=== PATIENT | female | born 1995 | race Caucasian/White ===

== ENCOUNTER 2024-05-01 14:36 | Emergency (ER) | payer MEDICAID, SELFPAY ==
[2024-05-01 14:43] VITALS: BP 124/86; PULSE 99; TEMP 36.8; O2SAT 99; BMI 29.5
--- NOTE | 2024-05-01 15:03 | XR_ITS ---
The [address] [address] Patient Name: LUIS MEADOWS MRN: [id number] date: 1995 Sex: F Assigned Patient Location: ER Current Patient Location: ER Accession/Order Number: [id number] Exam Date: 05/01/2024 15:30 Report Date: 05/01/2024 15:45 At the request of: ESTEFANY ESCOBEDO Procedure: XR tibia fibula RT 2V EXAM: XR tibia fibula RT 2V HISTORY: fall COMPARISON: Right femur x-ray 05/01/2024. TECHNIQUE: AP lateral right lower leg knee to ankle area. FINDINGS: Negative for fracture or bony abnormality. No foreign body. Visualized knee and ankle without abnormality although ankle visualization is limited. XR/XR tibia fibula RT 2V IMPRESSION: Negative for fracture. Electronically authenticated by: JOSE MADRID Date: 05/01/2024 15:45
--- NOTE | 2024-05-01 15:03 | XR_ITS ---
The [address] [address] Patient Name: LUIS MEADOWS MRN: [id number] date: 1995 Sex: F Assigned Patient Location: ER Current Patient Location: ER Accession/Order Number: [id number] Exam Date: 05/01/2024 15:30 Report Date: 05/01/2024 15:46 At the request of: ESTEFANY ESCOBEDO Procedure: XR femur RT 2V EXAM: XR femur RT 2V HISTORY: fall COMPARISON: Right lower leg 05/01/2024 TECHNIQUE: AP lateral right femur hip to knee. FINDINGS: Negative for fracture or focal bony abnormality. No soft tissue foreign body. Visualized hip and knee unremarkable. XR/XR femur RT 2V IMPRESSION: Negative for fracture or bony abnormality. Electronically authenticated by: JOSE MADRID Date: 05/01/2024 15:46
--- NOTE | 2024-05-01 15:04 | ED.LOWEXI1 ---
HPI HPI - Extremity Injury (Lower) General Chief Complaint: Extremity Injury, Lower Stated Complaint: LOWER RIGHT EXTREMITY PAIN, INJURY Time Seen by Provider: 05/01/24 15:00 Source: patient Mode of arrival: Wheelchair History of Present Illness HPI Narrative: Patient is a 29-year-old female who presents to the emergency department for the evaluation of an injury to the right leg that occurred about 60 to 90 minutes ago at home. She states she got off of a swing outside of her home when her dog went underneath her leg and tripped her, she states the swing hit the back of her leg and then she fell. She is not concerned for . She had no loss of consciousness or other associated injuries. She states she has not been able to walk since the injury. No medications taken prior to arrival. She points to her right knee as the biggest source of her pain but states that the whole leg hurts. Related Data Previous Rx's ?Medication ?Instructions ?Recorded hydrocodone 5 mg-acetaminophen 325 1 tab PO Q6H PRN pain 3 days #12 05/01/24 mg tablet tabs ketorolac 10 mg tablet 10 mg PO TID PRN pain #10 tabs 05/01/24 Allergies Allergy/AdvReac Type Severity Reaction Status Date / Time No Known Drug Allergies Allergy Verified 05/01/24 14:48 Opioid HPI Opioid Management Most Recent Pain and Opioid Data: Last Pain Scale 8 05/01/24 15:14 Last MAR Pain Assessment 05/01/24 15:14 Review of Systems ROS Constitutional Denies: fever or chills Ears, nose, mouth, and throat Denies: throat pain or nasal congestion Cardiovascular Denies: chest pain Respiratory Denies: shortness of breath or cough Gastrointestinal Denies: nausea or vomiting Musculoskeletal Reports: extremity pain, extremity swelling, joint pain and limited range of motion; Denies: back pain or neck pain Integumentary/Breast Denies: rash Neurological Denies: numbness in extremities or weakness in extremities Hematologic/Lymphatic Denies: easy bruising or easy bleeding Exam Narrative Exam Narrative: Gen.: Awake, alert, in no distress Head: Normocephalic, atraumatic ENT: Moist mucous membranes Respiratory: No respiratory distress Extremities: Diffuse mild tenderness of the proximal femur and right distal tibia/ankle. No obvious deformity or bony point tenderness. Diffuse moderate tenderness of the right knee and proximal tibia. Right medial knee with swelling noted, medial to the patella. No ecchymosis or obvious deformity. No laxity of the patella Psych: Normal mood and affect Neuro: No focal neuro deficit Skin: Warm, dry, intact Constitutional Vital Signs, click to edit/add: Last Vital Signs Temp 98.3 F 05/01/24 14:43 Pulse 99 H 05/01/24 14:43 Resp 22 H 05/01/24 14:43 BP 124/86 05/01/24 14:43 Pulse Ox 99 05/01/24 14:43 Course Vital Signs Vital signs: Vital Signs Temperature 98.3 F 05/01/24 14:43 Pulse Rate 99 H 05/01/24 14:43 Respiratory Rate 22 H 05/01/24 14:43 Blood Pressure 124/86 05/01/24 14:43 Pulse Oximetry 99 05/01/24 14:43 Temperature 98.3 F 05/01/24 14:43 Pulse Rate 99 H 05/01/24 14:43 Respiratory Rate 22 H 05/01/24 14:43 Blood Pressure 124/86 05/01/24 14:43 Pulse Oximetry 99 05/01/24 14:43 MDM - Extremity Injury (Lower) MDM Narrative Medical decision making narrative: Patient refused ice in the emergency department, she states it would hurt too much to place on her knee. She was treated with Percocet for pain. X-rays of the femur, tib-fib within normal limits with no evidence of fracture per the radiologist. Patient placed in Jose Francisco wrap and remains neurovascularly intact. Rest, ice, elevate. Crutches sent home to assist with ambulation and return to the ER if symptoms change or worsen. SUPERVISED APC VISIT, PHYSICIAN ATTESTATION: Based on the medical record the care appears appropriate. ? Medical Records Attestation: I reviewed the patient's medical records. Imaging Data XR femur: Attestation: I have reviewed the pertinent imaging results. Radiologist's impression: ITS Impressions Femur X-Ray 05/01/24 15:03 IMPRESSION: Negative for fracture or bony abnormality. Electronically authenticated by: JOSE MADRID Date: 05/01/2024 15:46 Tibia/Fibula X-Ray 05/01/24 15:03 IMPRESSION: Negative for fracture. Electronically authenticated by: JOSE MADRID Date: 05/01/2024 15:45 Discharge Plan Discharge Stand Alone Forms: Work/School Release, Portal Instructions Chief Complaint: Extremity Injury, Lower Clinical Impression: Contusion of right leg Patient Disposition: Home, Self-Care Time of Disposition Decision: 15:56 Condition: Good Prescriptions / Home Meds: New hydrocodone-acetaminophen 5-325 mg tablet 1 tab PO Q6H PRN (Reason: pain) 3 Days Qty: 12 0RF Rx Instructions: DX: M25.561 ketorolac 10 mg tablet 10 mg PO TID PRN (Reason: pain) Qty: 10 0RF Print Language: Montenegrin Instructions: Contusion in Adults (ED) Referrals: JG SANCHEZ [Primary Care Provider] - 1 week
[2024-05-01] MEDS: OXYCODONE HCL/ACETAMINOPHEN 5MG/325MG 1 TAB PO (15:14)
== END 2024-05-01 16:13 | disposition home or self-care (01) ==
PROVIDERS: Emergency Provider Emergency Medicine Emergency Medical Services; PCP Family Medicine
DX: S80.11XA Contusion of right lower leg, initial encounter (principal); W01.0XXA Fall on same level from slipping, tripping and stumbling without subsequent striking against object, initial encounter
CPT/HCPCS: 73552; 73590; 99284

== ENCOUNTER 2025-04-17 12:43 | Emergency (ER) | payer SELFPAY ==
[2025-04-17] VITALS (12 sets, daily range): BP systolic 116–127; BP diastolic 59–94; PULSE 51–77; TEMP 36.9; O2SAT 97–100; BMI 33.1
--- OUTSIDE RECORDS SUMMARY | 2025-04-17 13:30 | XMS_ITS | Clinical Summary ---
Author Organization [facility] Address [address] [place] [address] Care Team Providers Care Pattern Developer Name Role Phone Danika Espinal MD Primary Care Provider [phone] Allergies No known active allergies Medications Spacer/Aero-Holdi ng Chambers (BreatheRite) misc USE DIRECTED 3 Active fluticasone (Flovent HFA) 110 MCG/ACT inhalerIndication s:Moderate persistent asthma with acute exacerbation (HCC) Inhale 1 puff in the morning and 1 puff before bedtime. Rinse mouth with water after use to reduce aftertaste and incidence of candidiasis. Do not swallow.. 12 g 11 3 Active albuterol HFA (Ventolin HFA) 90 mcg/act inhalerIndication s:Mild intermittent asthma without complication (HCC) Inhale 1 puff every 4 (four) hours if needed for wheezing or shortness of breath 18 g 1 4 Active fluticasone (Flonase) 50 MCG/ACT nasal sprayIndications: Nasal congestion Administer 1 spray into each nostril Daily Shake gently. Before first use, prime pump. After use, clean tip and replace cap. 16 g 1 4 Active lamoTRIgine (LaMICtal) 25 MG tabletIndications :Migraine, unspecified, not intractable, without status migrainosus TAKE 1 TABLET BY MOUTH TWICE DAILY 60 tablet 11 4 Active lamoTRIgine (LaMICtal) 100 MG tabletIndications :Nonintractable epilepsy without status epilepticus, unspecified epilepsy type (HCC) In addition to 25mg BID for total dose of 225mg BID 360 tablet 3 4 Active levETIRAcetam (Keppra) 1000 MG tabletIndications :Nonintractable epilepsy without status epilepticus, unspecified epilepsy type (HCC) Take 1.5 tablets (1,500 mg) by mouth in the morning and 1.5 tablets (1,500 mg) before bedtime. 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 Smoker 10/09/2022 Overview (05/09/2023): Encouraged cessation Atypical squamous cells of u ndetermined significance (ASCUS) on Papanicolaou smear of cervix 04/05/2021 Marijuana use 11/03/2020 Overview (05/09/2023): + UDS Mild intermittent asthma without complication Immunizations Immunization Administration Dates Next Due DTaP, Unspecified 07/20/2001, 8,1997,1997,0 1995 HPV, Quadrivalent 07/13/2010,01/11/2010,04/18/20 09 Hep B, Adolescent or Pediatric 1995 Hib (HbOC) 1995 Hib (PRP-OMP) 03/21/1998 Hib / Hep B 1997,1997 IPV 07/20/2001,1997,1997 MMR 07/20/2001,03/21/1998 Meningococcal MCV4P 04/18/2009 OPV 03/21/1998 Tdap 04/05/2021 Family History Medical History Relation Name Comments vertigo Brother Cancer Father Mental illness Mother Bipolar disorder Sister Diabetes type I Sister No Known Problems Son Relation Name Status Comments Brother Alive 1 brother Father Mother Alive Sister Alive 1 sister Son 2 sons Social History Tobacco Use Types Packs/Day Years Used Date Smoking Tobacco: Every Day Cigarettes 0.3 7.6 Started: 09/01/2017 Smokeless Tobacco: Never Tobacco Cessation:Ready to Q uit: Not Asked; Counseling Given: Not Answered Alcohol Use Standard Drinks/Week Comments Yes 0 (1 standard drink = 0.6 oz pure alcohol) caffeine: 1-2 cups per day coffee, soda/pop AUDIT-C Answer Date Recorded Q1: How often do you have a drink containing alc ohol? Monthly or less 11/25/2023 Q2: How many drinks containi ng alcohol do you have on a typical day when you are drinking? 1 or 2 11/25/2023 Q3: How often do you have si x or more drinks on one occasion? Never 11/25/2023 PHQ-2 Answer Date Recorded Patient Health Questionnaire-2 Score 0 11/25/2023 Comments Unknown Sex and Gender Information Value Date Recorded Sex Assigned at Female 03/09/2024 10:08 PM EDT Legal Sex Female 7:10 PM EDT Gender Identity Female 03/09/2024 10:08 PM EDT Sexual Orientation Not on file Last Filed Vital Signs Vital Sign Reading Time Taken Comments Blood Pressure 152/102 03/10/2024 4:26 PM EDT Pulse 77 11/25/2023 8:50 AM EDT Temperature 36 C (96.8 F) 11/25/2023 8:50 AM EDT Respiratory Rate 18 10/28/2023 8:57 AM EST Oxygen Saturation 97% 11/25/2023 8:50 AM EDT Inhaled Oxygen Concentration - - Weight 91.6 kg (202 lb) 03/10/2024 4:26 PM EDT Height 172.7 cm (5' 8 ) 03/10/2024 4:26 PM EDT Body Mass Index 30.71 03/10/2024 4:26 PM EDT Plan of Treatment Health Maintenance Due Date Last Done Comments Influenza Vaccine (#1) 2025 Insurance [employer] [place]ICA[place] Care Teams Pattern Developer Relationship Specialty Start Date End Date Danika Espinal MD [address] [place] [address] PCP - General Family Medicine 10/28/23
--- OUTSIDE RECORDS SUMMARY | 2025-04-17 13:30 | XMS_ITS | Encounter Summary ---
Author Organization [facility] Address [address] [facility] [place] [address] Care Team Providers Care Credit Office Manager Name Role Phone Danika Espinal MD Primary Care Provider [phone] Reason for Visit * Reason Comments Med Refill Encounter Details Date Type Department Care Team (Late st Contact Info) Description 04/28/2024 Refill [facility] Medicine [address] [place] [address] Danika Espinal MD [address] [place], [place] [id number] Moderate episode of recurrent major depressive disorder (HCC) Social History Tobacco Use Types Packs/Day Years Used Date Smoking Tobacco: Every Day Cigarettes 0.3 7.6 Started: 09/01/2017 Smokeless Tobacco: Never Alcohol Use Standard Drinks/Week Comments Yes 0 [...] PM EDT Sexual Orientation Not on file documented as of this encounter Miscellaneous Notes * Telephone Encounter - Danika Espinal MD - 04/28/2024 2:36 PM EDT Approving, but needs appt for additional refills. documented in this encounter Plan of Treatment Not on file documented as of this encounter Visit Diagnoses Diagnosis Moderate episode of recurrent major depressive disorder (HCC) documented in this encounter Additional Health Concerns Assessment Noted Time PHQ-9 Depression Total Score: 4 11/25/19 8:57 AM EDT documented as of this encounter Care Teams Credit Office Manager Relationship Specialty Start Date End Date Danika Espinal MD [address] [place] [address] PCP - General Family Medicine 10/28/23 documented as of this encounter
--- OUTSIDE RECORDS SUMMARY | 2025-04-17 13:30 | XMS_ITS | Encounter Summary ---
Author Organization [facility] Address [address] [facility] [place] [address] Care Team Providers Care Vascular Sonographer Name Role Phone Danika Espinal MD Primary Care Provider [phone] Reason for Visit * Reason Comments Med Refill Encounter Details Date Type Department Care Team (Late st Contact Info) Description 04/07/2024 Refill [facility] Medicine [address] [place] [address] Danika Espinal MD [address] [place], [place] [id number] Moderate episode of recurrent major depressive disorder [...] encounter Miscellaneous Notes * Telephone Encounter - Charity Ulloa MA - 04/08/2024 8:45 AM EDT Approving, but needs appt for additional refills. documented in this encounter Plan of Treatment Not on file documented as of this encounter Visit Diagnoses Diagnosis Moderate episode of recurrent major depressive disorder (HCC) documented in this encounter Additional Health Concerns Assessment Noted Time PHQ-9 Depression Total Score: 4 11/25/19 8:57 AM EDT documented as of this encounter Care Teams Vascular Sonographer Relationship Specialty Start Date End Date Danika Espinal MD [address] [place] [address] PCP - General Family Medicine 10/28/23 documented as of this encounter
--- OUTSIDE RECORDS SUMMARY | 2025-04-17 13:30 | XMS_ITS | CCD ---
Author Organization [facility] Team Providers Care Addiction Social Worker Name Role Phone SAVITA MARROQUIN Primary Care Unavailable ESTEPHANIA ., LETY Admitting Unavailable ESTEPHANIA ., LETY Attending Unavailable GREGG ., SHAW ALLISON Consulting Unavailabdiel BEST ., LETY Consulting Unavailable LATANYA CHANG Admitting Unavailable LATANYA CHANG Attending Unavailable SAVITA MARROQUIN Primary Care Unavailable LATANYA CHANG Consulting Unavailable SAVITA HAN Referring Unav ailable SAVITA HAN Primary Care Unav ailable SARAH LO Referring Unavailable RUTHANN HASTINGS Attending Unavailab RUTHANN Ray Attending Unavailab ASHLEY Garcia Attending Unavailable Scherger Gonya OWNER/OPERATOR-Savita TAYLOR Primary Car e Provider Medications Current Medications Medication Drug Class(es) Dates Sig (Normalized) Sig (Original) 24 hr buPROPion hydrochloride 150 mg extended release oral tablet (1 source) Aminoketone Start: 05-26-2023 End: 05-25-2024 take 1 tablet by mouth every twenty-four hours in the morning buPROPion XL (WELLBUTRIN XL) 150 mg 24 hr tablet Take 1 tablet (150 mg total) by mouth in the morning. 90 tablet 3 05/26/2023 05/25/2024 Active Ethinyl Estradiol / norgestimate (1 source) Progestin, Estrogen Start: 10-09-2022 End: 10-23-2023 take 1 tablet by mouth once in the morning norgestimate-ethin yl estradioL (ORTHO-CYCLEN) 0.25-35 mg-mcg per tablet Indications: Surveillance of contraceptive pill Take 1 tablet by mouth in the morning. 28 tablet 0 10/09/2022 10/23/2023 Discontinued (Alternate therapy) lamoTRIgine 100 mg oral tablet (1 source) Mood Stabilizer, Anti-epileptic Agent lamoTRIgine (LaMICtal) 100 mg tablet Take 225 mg by mouth 2 (two) times a day. 0 Active levETIRAcetam 1000 mg oral tablet (1 source) take 2 tablets by mouth in the morning, then take 2 tablets by mouth at bedtime levETIRAcetam (KEPPRA) 1000 mg tablet Take 2 tablets (2,000 mg total) by mouth in the morning and 2 tablets (2,000 mg total) before bedtime. 0 Active ondansetron 4 mg oral tablet (1 source) Serotonin-3 Receptor Antagonist take 2 tablets by mouth in the morning, then take 2 tablets by mouth at bedtime ondansetron (ZOFRAN) 4 mg tablet Take 2 tablets (8 mg total) by mouth in the morning and 2 tablets (8 mg total) before bedtime. 0 Active rizatriptan 10 mg oral tablet (1 source) Serotonin-1b and Serotonin-1d Receptor Agonist rizatriptan (MAXALT) 10 mg tablet Take 1 tablet (10 mg total) by mouth once as needed for migraine. May repeat in 2 hours if unresolved. Do not exceed 30 mg in 24 hours. 0 Active sertraline 25 mg oral tablet (1 source) Serotonin Reuptake Inhibitor take 1 tablet by mouth in the morning sertraline (ZOLOFT) 25 mg tablet Take 1 tablet (25 mg total) by mouth in the morning. 0 Active venlafaxine 75 mg oral tablet (1 source) Serotonin and Norepinephrine Reuptake Inhibitor Start: 09-22-2023 take 1 tablet by mouth in the morning, then take 1 tablet by mouth at mealtime venlafaxine (EFFEXOR) 75 mg tablet Take 1 tablet (75 mg total) by mouth in the morning and 1 tablet (75 mg total) in the evening. Take with meals. 0 09/22/2023 Active Problems Active Problems Problem Classification Problem Date Documented Da te Episodic/Chronic Asthma (1 source) Mild intermittent asthma; Translations: [Mild intermittent asthma, uncomplicated] Onset: 05-10-2020 05-10-2020 Chronic Epilepsy; convulsions (5 sources) Epilepsy, unspecified, not intractable, without status epilepticus; Translations: [Epilepsy] Onset: 05-07-2018 Chronic Influenza (1 source) Influenza due to unidentified influenza virus with other respiratory manifestations; Translations: [FLU D/T UNIDENT FLU VIR RESP MANIF] Onset: 11-25-2022 Episodic Nausea and vomiting (1 source) Vomiting, unspecified; Translations: [VOMITING UNSPECIFIED] Onset: 11-25-2022 Episodic Other aftercare (1 source) Other bed bug exterminator (current) drug therapy; Translations: [OTH COOK PIE CURRENT DRUG THERAPY] Onset: 11-25-2022 Episodic Other gastrointestinal disorders (1 source) Diarrhea, unspecified; Translations: [DIARRHEA UNSPECIFIED] Onset: 11-25-2022 Episodic Substance-related disorders (2 sources) Nicotine dependence, cigarettes, uncomplicated; Translations: [Smoker] Onset: 10-09-2022 10-09-2022 Chronic Unclassified (2 sources) COUGH, UNSPECIFIED; Translations: [COUGH, UNSPECIFIED] Onset: 11-25-2022 Unclassified (1 source) CONTACT W/AND (SUSP) EXPOS COVID-19; Translations: [CONTACT W/AND (SUSP) EXPOS COVID-19] Onset: 11-25-2022 Past or Other Problems Problem Classification Problem Date Documented Date Episodic/Chronic Cancer of cervix (1 source) Atypical squamous cells of undetermined significance on cervical Papanicolaou smear; Translations: [Atypical squamous cells of undetermined significance on cytologic smear of cervix (ASC-US)] Onset: 10-26-2018 04-05-2021 Episodic Contraceptive and procreative management (1 source) Subcutaneous contraceptive implant present; Translations: [Presence of (intrauterine) contraceptive device] Onset: 10-15-2022 10-15-2022 Episodic Mood disorders (1 source) Mood disorders Onset: 10-23-2023 10-23-2023 Other hematologic conditions (1 source) History of immune thrombocytopenia; Translations: [Personal history of diseases of the blood and blood-forming organs and certain disorders involving the immune mechanism] Onset: 04-05-2021 Resolved: 05-30-2021 05-30-2021 Episodic Screening and history of mental health and substance abuse codes (1 source) Standardized adult depression screening tool completed ; Translations: [Encounter for screening for depression] 10-23-2023 Episodic Substance-related disorders (1 source) Marijuana user; Translations: [Cannabis use, unspecified, uncomplicated] Onset: 11-03-2020 04-05-2021 Episodic Unclassified (1 source) COUGH, UNSPECIFIED; Translations: [COUGH, UNSPECIFIED] Onset: 11-21-2022 Unclassified (1 source) Onset: 10-23-2023 10-23-2023 Results Test Name Value Interpretation Reference Range Facility XR CHEST 2 VIEWSon 3 XR CHEST 2 VIEWS EXAMINATION: XR CHES T 2 VIEWS HISTORY: shortness of breath, history of asthma TECHNIQUE: Frontal and lateral views of the chest. COMPARISON: None available FINDINGS: Cardiomediastinal silhouette is within normal limits. No pneumothorax, pleural effusion, or consolidation. No acute osseous abnormality. IMPRESSION: No radiographic evidence of acute intrathoracic process. ELECTRONICALLY SIGNED BY: Xu Lyle, DO Normal Not Available [facility] 06-09-2023 Outside Records [id number] TIFF Normal [facility] 02-11-2023 Outside Records [id number] IFF [facility] GROUP A STREP CULTUREon 10-31 S. pyogenes Ag Ql (Unsp spec) Isolate 1 Streptococcus pyogenes Moderate growth of ORGANISM 1 Streptococcus pyogenes ANTIBIOTIC M.I.C RX STATUS Benzylpenicillin <=0.06 S F Ampicillin <=0.25 S F Cefotaxime <=0.12 S F Ceftriaxone <=0.12 S F Levofloxacin 0.5 S F Inducible Clindamycin Resistance Neg NEG F Erythromycin <=0.12 S F Clindamycin <=0.25 S F Linezolid <=2 S F Vancomycin <=0.12 S F Tetracycline <=0.25 S F Normal [facility] Comment on above: Performed By: #### G RASTCX, SSCRN #### [facility] [address] [place] [address] Dr. Murtaza Gillespie [facility] SARS-CoV-2 (COVID-19) RNA KARIN+probe Ql (Unsp spec) Not detected Normal NOT DETECTED The [facility] Comment on above: Result Comment: This test is not yet approved or cleared by the [place] FDA. When there are no FDA-approved or cleared tests available, and other criteria are met, FDA can make tests available under an emergency access mechanism called an Emergency Use Authorization (EUA). The EUA for this test is supported by the [place] of Health and Human Service's (HHS's) declaration that circumstances exist to justify the emergency use of in vitro diagnostics for the detection and/or diagnosis of the virus that causes COVID-19. This EUA will remain in effect (meaning this test can be used) for the duration of the COVID-19 declaration justifying emergency of IVDs, unless it is terminated or revoked by FDA (after which the test may no longer be used). When diagnostic testing is negative, the possibility of a false negative should be considered in the context of a patient's recent exposures and the presence of clinical signs and symptoms consistent with SARS-CoV-2. Performed By: #### Matthew BRAMBILA #### [facility] [address] [place] [address] Dr. Murtaza Gillespie ER URINE PROFILEon 3 Bilirubin Ql (U) MODERATE Abnormal NEGATIVE [facility] Comment on above: Performed By: #### LEYDA DANG #### [facility] [address] [place] [address] Dr. Murtaza Gillespie Clarity (U) CLEAR Normal CLEAR The [facility] Comment on above: Performed By: #### TERE DANGRO #### [facility] [address] [place] [address] Dr. Murtaza Gillespie Color (U) YELLOW Normal YELLOW [facility] Comment on above: Performed By: #### TERE DANGRO #### [facility] [address] [place] [address] Dr. Murtaza Gillespie ERUAHD A micrscopic examina tion will be performed if indicated. Normal The [facility] Comment on above: Performed By: #### TERE DANGRO #### [facility] [address] [place] [address] Dr. Murtaza Gillespie Glucose Ql (U) Negative Normal NEGATIVE [facility] Comment on above: Performed By: #### TERE DANGRO #### [facility] [address] [place] [address] Dr. Murtaza Gillespie Hemoglobin Ql (U) SMALL Abnormal NEGATIVE [facility] Comment on above: Performed By: #### TERE DANGRO #### [facility] [address] [place] [address] Dr. Murtaza Gillespie Ketones Ql (U) >=80 Abnormal NEGATIVE The [facility] Comment on above: Performed By: #### TERE DANGRO #### [facility] [address] [place] [address] Dr. Murtaza Gillespie LEUKOCYTES Negative Normal NEGATIVE [facility] Comment on above: Performed By: #### TERE DANGRO #### [facility] [address] [place] [address] Dr. Murtaza Gillespie Nitrite Ql (U) Negative Normal NEGATIVE [facility] Comment on above: Performed By: #### TERE DANGRO #### [facility] [address] [place] [address] Dr. Murtaza Gillespie pH (U) 6.0 [pH] Normal 5-9 [facility] Comment on above: Performed By: #### TERE DANGRO #### [facility] [address] [place] [address] Dr. Murtaza Gillespie Protein (U) [Mass/Vol] 100 mg/dL Abnormal NEGATIVE/ TRACE The [facility] Comment on above: Performed By: #### TERE DANGRO #### [facility] [address] [place] [address] Dr. Murtaza Gillespie SPEC GRAVITY 1.015 Normal 1.005-<=1.025 [facility] Comment on above: Performed By: #### TERE DANGRO #### [facility] [address] [place] [address] Dr. Murtaza Gillespie UR MICRO IND INDICATED Normal [facility] Comment on above: Performed By: #### E LEYDA SEO #### [facility] [address] [place] [address] Dr. Murtaza Gillespie Urobilinogen Qn (U) 0.2 {Christie'U}/dL Normal 0.2 - 1.0 The [facility] Comment on above: Performed By: #### E LEYDA SEO #### [facility] [address] [place] [address] Dr. Muratza Gillespie INFLUENZA A AND B AGon 11-21 INFLUANEGH SEE BELOW Normal The [facility] Comment on above: Result Comment: Nega tive for Flu A protein angiten. Infection due to Flu A cannot be ruled out. Flu A angiten in the sample may be below the detection limit of the test. Performed By: #### I NFLUAB #### [facility] [address] [place] [address] Dr. Murtaza Gillespie INFLUBNEGH SEE BELOW Normal [facility] Comment on above: Result Comment: Nega tive for Flu B protein antigen. Infection due to Flu B cannot be ruled out. Flu B antigen in the sample may be below the detection limit of the test. Performed By: #### I NFLUAB #### [facility] [address] [place] [address] Dr. Murtaza Gillespie INFLUENZA A AG Negative Normal NEGATIVE SEE COMMENT [facility] Comment on above: Performed By: #### I NFLUAB #### [facility] [address] [place] [address] Dr. Murtaza Gillespie INFLUENZA B AG Negative Normal NEGATIVE SEE COMMENT [facility] Comment on above: Performed By: #### I NFLUAB #### [facility] [address] [place] [address] Dr. Murtaza Gillespie STREPT SCREENon 11-21-2022 STREP SCREEN A Negative Normal NEGATIVE The [facility] Comment on above: Performed By: #### G RASTCX, SSCRN #### [facility] [address] [place] [address] Dr. Murtaza Gillespie SYMPTOMATIC COVID-19 ANTIGEN on 11-21-2022 EUA Statement SEE BELOW Normal The [facility] Comment on above: Result Comment: This test has not been FDA cleared or approved, but has been authorized by the FDA under an Emergency Use Authorization (EUA) for use by authorized laboratories certified under CLIA that meet the requirements to perform moderate or high complexity testing. This test has been authorized only for the detection of proteins from SARS-CoV-2, not for any other viruses or pathogens. The emergency use of this test is authorized for the duration of the declaration that circumstances exist justifying the authorization of emergency use of in vitro diagnostic tests for detection and/or diagnosis of Covid-19 under section 564(b)(1) of the Act, 21 U.S.C. 360bbb-3(b)(1), unless the declaration is terminated or authorization is revoked sooner. Performed By: #### C VDAGS #### [facility] [address] [place] [address] Dr. Murtaza Gillespie SARS-CoV-2 (COVID-19) RNA KARIN+probe Ql (Unsp spec) Negative Normal NEGATIVE The [facility] Comment on above: Performed By: #### C VERONICAAGS #### [facility] [address] [place] [address] Dr. Murtaza Gillespie URINE MICROSCOPIC ONLYon BACTERIA TRACE Abnormal NONE SEEN The [facility] Comment on above: Performed By: #### Kaushal SEO UMICRO #### [facility] [address] [place] [address] Dr. Murtaza Gillespie Bacteria identified Cx Nom (U) NOT INDICATED Normal The [facility] Comment on above: Performed By: #### E ASHIAR, UMICRO #### [facility] [address] [place] [address] Dr. Murtaza Gillespie CAST NONE SEEN Normal NONE SEEN The [facility] Comment on above: Performed By: #### E ASHIAR UMICRO #### [facility] [address] [place] [address] Dr. Murtaza Gillespie Crystals LM Nom (Urine sed) NONE SEEN Normal NONE SEEN [facility] Comment on above: Performed By: #### E ASHIAR UMICRO #### [facility] [address] [place] [address] Dr. Murtaza Gillespie Epithelial cells LM Ql (Urine sed) FEW Abnormal NONE SEEN /RARE The [facility] Comment on above: Performed By: #### LEYDA DANG #### [facility] [address] [place] [address] Dr. Murtaza Gillespie MUCOUS TRACE Abnormal NONE SEEN The [facility] Comment on above: Performed By: #### TERE DANGRO #### [facility] [address] [place] [address] Dr. Murtaza Gillespie RBC 2-5 Abnormal 0-2 [facility] Comment on above: Performed By: #### LEYDA DANG #### [facility] [address] [place] [address] Dr. Murtaza Gillespie WBC 0-2 Abnormal NONE SEEN The [facility] Comment on above: Performed By: #### LEYDA DANG #### [facility] [address] [place] [address] Dr. Murtaza Gillespie LAMOTRIGINEon 10-04-2022 Lamotrigine, Serum 9.4 ug/mL Normal 2.0-20.0 [facility] Comment on above: Result Comment: Dete ction Limit = 1.0 Performed By: #### L AMOT #### [facility] [address] [place] [address] Dr. Murtaza Gillespie LEVETIRACETAM, SERUM OR PLAS MAon 10-04-2022 Levetiracetam, S 65.1 ug/mL Critically high 10.0-40.0 [facility] Comment on above: Performed By: #### K EPPRA #### [facility] [address] [place] [address] Dr. Murtaza Gillespie CBC AUTO DIFFon 10-02-2022 BASO # 0.0 103/ul Normal 0.0-0.1 [facility] Comment on above: Performed By: #### C BC #### [facility] [address] [place] [address] Dr. Murtaza Gillespie Basophils/100 WBC (Bld) 0.4 % Normal 0.2-2.0 [facility] Comment on above: Performed By: #### C BC #### [facility] [address] [place] [address] Dr. Murtaza Gillespie EO # 0.1 103/ul Normal 0.0-0.7 [facility] Comment on above: Performed By: #### C BC #### [facility] [address] [place] [address] Dr. Murtaza Gillespie Eosinophils/100 WBC (Bld) 1.3 % Normal 0.9-7.0 [facility] Comment on above: Performed By: #### C BC #### [facility] [address] [place] [address] Dr. Murtaza Gillespie Erythrocyte distribution width (RBC) [Ratio] 12.6 % Normal 11.0-15.0 [facility] Comment on above: Performed By: #### C BC #### [facility] [address] [place] [address] Dr. Murtaza Gillespie Hematocrit (Bld) [Volume fraction] 37.9 % Normal 36.0-48.0 [facility] Comment on above: Performed By: #### C BC #### [facility] [address] [place] [address] Dr. Murtaza Gillespie Hemoglobin (Bld) [Mass/Vol] 12.4 g/dL Normal 12.0-16.0 [facility] Comment on above: Performed By: #### C BC #### [facility] [address] [place] [address] Dr. Murtaza Gillespie IG # 0.02 10e3/ul Normal 0.00-0.03 [facility] Comment on above: Performed By: #### C BC #### [facility] [address] [place] [address] Dr. Murtaza Gillespie IG % 0.3 % Normal 0.0-0.5 [facility] Comment on above: Performed By: #### C BC #### [facility] [address] [place] [address] Dr. Murtaza Gillespie LYMPH # 2.8 103/ul Normal 1.2-3.8 [facility] Comment on above: Performed By: #### C BC #### [facility] [address] [place] [address] Dr. Murtaza Gillespie Lymphocytes/100 WBC (Bld) 41.2 % Normal 20.5-60.0 [facility] Comment on above: Performed By: #### C BC #### [facility] [address] [place] [address] Dr. Murtaza Gillespie MANUAL DIFF REQ NO Normal [facility] Comment on above: Performed By: #### C BC #### [facility] [address] [place] [address] Dr. Murtaza Gillespie MCH (RBC) [Entitic mass] 30.5 pg Normal 26.7-34.0 [facility] Comment on above: Performed By: #### C BC #### [facility] [address] [place] [address] Dr. Murtaza Gillespie MCHC (RBC) [Mass/Vol] 32.7 g/dL Normal 29.9-35.2 [facility] Comment on above: Performed By: #### C BC #### [facility] [address] [place] [address] Dr. Murtaza Gillespie MCV (RBC) [Entitic vol] 93.1 fL Normal 81.0-99.0 [facility] Comment on above: Performed By: #### C BC #### [facility] [address] [place] [address] Dr. Murtaza Gillespie MONO # 0.4 103/ul Normal 0.3-0.8 [facility] Comment on above: Performed By: #### C BC #### [facility] [address] [place] [address] Dr. Murtaza Gillespie Monocytes/100 WBC (Bld) 5.4 % Normal 1.7-12.0 [facility] Comment on above: Performed By: #### C BC #### [facility] [address] [place] [address] Dr. Murtaza Gillespie NEUT # 3.5 103/ul Normal 1.4-6.5 [facility] Comment on above: Performed By: #### C BC #### [facility] [address] [address] [address] Murtaza Gillespie Neutrophils/100 WBC (Bld) 51.4 % Normal 43.0-75.0 [facility] Comment on above: Performed By: #### C BC #### [facility] [address] [place] [address] Dr. Murtaza Gillespie Platelet mean volume (Bld) [Entitic vol] 9.9 fL Normal 9.5-13.5 [facility] Comment on above: Performed By: #### C BC #### [facility] [address] [place] [address] Dr. Murtaza Gillespie PLT 291 103/ul Normal 150-450 [facility] Comment on above: Performed By: #### C BC #### [facility] [address] [place] [address] Dr. Murtaza Gillespie RBC 4.07 106/ul Critically low 4.20-5.40 [facility] Comment on above: Performed By: #### C BC #### [facility] [address] [place] [address] Dr. Murtaza Gillespie WBC 6.9 103/ul Normal 4.0-11.0 [facility] Comment on above: Performed By: #### C BC #### [facility] [address] [place] [address] Dr. Murtaza Gillespie PROF 14(COMP METB)on 023 Albumin [Mass/Vol] 3.5 g/dL Normal 3.4-5.0 [facility] Comment on above: Performed By: #### C MP #### [facility] [address] [place] [address] Dr. Murtaza Gillespie Albumin/Globulin [Mass ratio] 1.0 {ratio} Normal [facility] Comment on above: Performed By: #### C MP #### [facility] [address] [place] [address] Dr. Murtaza Gillespie ALP [Catalytic activity/Vol] 67 U/L Normal 46-116 [facility] Comment on above: Performed By: #### C MP #### [facility] [address] [address] [address] Murtaza Gillespie ALT [Catalytic activity/Vol] 29 U/L Normal 14-59 The [facility] Comment on above: Performed By: #### C MP #### [facility] [address] [address] [address] Murtaza Gillespie Anion gap [Moles/Vol] 12.8 mmol/L Normal [facility] Comment on above: Performed By: #### C MP #### [facility] [address] [address] [address] Murtaza Gillespie AST [Catalytic activity/Vol] 17 U/L Normal 15-37 [facility] Comment on above: Performed By: #### C MP #### [facility] [address] [place] [address] Dr. Murtaza Gillespie Bilirubin [Mass/Vol] 0.2 mg/dL Normal 0.2-1.0 [facility] Comment on above: Performed By: #### C MP #### [facility] [address] [address] [address] Murtaza Gillespie Calcium [Mass/Vol] 8.9 mg/dL Normal 8.5-10.1 [facility] Comment on above: Performed By: #### C MP #### [facility] [address] [place] [address] Dr. Murtaza Gillespie Chloride [Moles/Vol] 106 mmol/L Normal 98-107 [facility] Comment on above: Performed By: #### C MP #### [facility] [address] [address] [address] Murtaza Gillespie CO2 [Moles/Vol] 27.0 mmol/L Normal 21.0-32.0 The [facility] Comment on above: Performed By: #### C MP #### [facility] [address] [address] [address] Mutraza Gillespie Creatinine [Mass/Vol] 0.51 mg/dL Critically low 0.55-1.02 [facility] Comment on above: Performed By: #### C MP #### [facility] [address] [address] [address] Murtaza Gillespie EGFR-AF FINNISH >60 Normal >=60 The [facility] Comment on above: Performed By: #### C MP #### [facility] [address] [address] [address] Murtaza Gillespie EGFR-NON AF FINNISH >60 Normal >=60 [facility] Comment on above: Performed By: #### C MP #### [facility] [address] [address] [address] Murtaza Gillespie Globulin (S) [Mass/Vol] 3.4 g/dL Normal [facility] Comment on above: Performed By: #### C MP #### [facility] [address] [place] [address] Dr. Murtaza Gillespie Glucose [Mass/Vol] 89 mg/dL Normal 74-106 [facility] Comment on above: Performed By: #### C MP #### [facility] [address] [place] [address] Dr. Murtaza Gillespie Potassium [Moles/Vol] 3.8 mmol/L Normal 3.5-5.1 [facility] Comment on above: Performed By: #### C MP #### [facility] [address] [place] [address] Dr. Murtaza Gillespie Protein [Mass/Vol] 6.9 g/dL Normal 6.4-8.2 The [facility] Comment on above: Performed By: #### C MP #### [facility] [address] [place] [address] Dr. Murtaza Gillespie Sodium [Moles/Vol] 142 mmol/L Normal 136-145 The [facility] Comment on above: Performed By: #### C MP #### [facility] [address] [place] [address] Dr. Murtaza Gillespie Urea nitrogen [Mass/Vol] 8.0 mg/dL Normal 7.0-18.0 [facility] Comment on above: Performed By: #### C MP #### [facility] [address] [place] [address] Dr. Murtaza Gillespie Urea nitrogen/Creatinin e [Mass ratio] 15.7 mg/mg Normal [facility] Comment on above: Performed By: #### C #### [facility] [address] [address] [address] Murtaza Gillespie XR Ankle Complete Righton XR Ankle Complete Right FINDINGS: Mild anterolateral soft tissue swelling however, no fracture or dislocation is seen. Talar dome and talar cain are intact. Bone mineralization is normal for this age. IMPRESSION: Mild anterolateral soft tissue swelling. Report reported and signed by Neftaly Whitney on 05/15/2022 1120 Normal [facility] XR Hand Complete Left*on XR Hand Complete Left* FINDINGS: Generalized wrist soft tissue swelling. Normal carpal bone alignment. No fracture or dislocation. Subluxation of the 1st metacarpal base upon the normally aligned trapezium. No avulsion fracture or periosteal reaction. Unremarkable MCP, IP joints. IMPRESSION: 1st carpal metacarpal subluxation suggests ligament injury with generalized wrist soft tissue swelling. MRI maybe of assistance for further characterization. Report reported and signed by Neftaly Whitney on 05/15/2022 1117 Normal [facility] XR Wrist Complete Left*on XR Wrist Complete Left* HISTORY: Pain, fall FINDINGS: FINDINGS: Generalized wrist soft tissue swelling. Normal carpal bone alignment. No fracture or dislocation. Subluxation of the 1st metacarpal base upon the normally aligned trapezium. No avulsion fracture or periosteal reaction. Unremarkable MCP, IP joints. IMPRESSION: 1st carpal metacarpal subluxation suggests ligament injury with generalized wrist soft tissue swelling. MRI maybe of assistance for further characterization. Report reported and signed by Neftaly Whitney on 05/15/2022 1116 Normal [facility] EEGon 10-09-2020 EEG NAME Pepe Hansen [id number] MEDICAL RECORD NUMBER [facility]OSPITAL # [id number] AGE 25 (: 1995) ROOM # CD:1 ORDERING PHYSICIAN Abelino Saunders M.D. DATE OF EEG 10/04/2020 TWO-HOUR ELECTROENCEPHALOGRAM CLINICAL HISTORY: Myah is a 25-year-old woman with history of a seizure disorder since the age of 15. Her last generalized tonic-clonic seizure was two and a half years ago. Within the last month, she has had some staring spells. She is on Keppra and lamotrigine at the time of this study. TECHNICAL INFORMATION: This 90-minute long EEG was performed using the standard international 10-20 system of lead placement. All data was obtained digitally and is available for reformatting and remontaging. Simultaneous EKG monitoring was performed during the recording. DESCRIPTION OF EEG RECORDING: Posterior dominant rhythm was apparent, was of high amplitude, was 11 hertz, and appropriately attenuated with eye opening. Electrical activity is generally of symmetric amplitude between hemispheres and from anterior to posterior. Photic stimulation was used as an activating procedure and resulted in no abnormal findings. Hyperinflation was not performed. Electrographic sleep was observed. No epileptiform activity was seen throughout the entirety of the recording. There was no significant or interpretation limiting artifact was seen. IMPRESSION: This 90-minute long electroencephalogram study is normal. No seizures seen. No epileptiform activity is seen. Overall, no concerning findings that would be suggestive of increased risk of seizure. Pieter Barnes D.O. gls Dictated: 10/04/2020 #[id number] Typed: 10/05/2020 #[id number] cc:: Sandi Greenfield D.O. [facility] Comment on above: Result Comment: Elec tronically Signed By: Pieter Barnes DO\.br\Date and Time Signed: 10/09/20 09:37 EST Coding Summary.on 10-05-2020 Coding Summary. CODING DATE: 021 FINAL [facility] STATUS: Home (Routine DC) PAYOR: Medicaid EA DESCRIPTION 0210 EXTENDED EEG STUDIES ADMIT DX: REASON FOR VISIT DX: R56.9 Unspecified convulsions FINAL DX: PRINCIPAL: R56.9 Unspecified convulsions SECONDARY: PYMT PROC EAPG STAT DESCRIPTION DOCTOR NAME DATE NOTE: The code number assigned matches the documented diagnosis and / or procedure in the patient's chart. However, the narrative phrase printed from the coding software may appear abbreviated, or result in slightly different terminology. Coded By: Evangelina Huffman CphT Date Saved: 10/05/2020 10:29 am [facility] [place] 10-04-2020 Consent [id number] :127 Normal [facility] Physician Orderon 09-27-2020 Physician Order [id number]: 127 Normal [facility] Vital Signs Date Time Vital Sign Value Performing Clinician Brittany finney 10-23-2023 09:15-050 Body height 172.7 cm [facility] 10-23-2023 09:15-0500 Body mass index (BMI) [Ratio] 31.78 kg/m2 [facility] 10-23-2023 09:15-050 Body weight 94.8 kg [facility] 10-23-2023 09:15-0500 Diastolic blood pressure 76 mm[Hg] [facility] 10-23-2023 09:15-0500 Systolic blood pressure 122 mm[Hg] [facility] Encounters Encounter Date Encounter Type Care Provider Facility Start: 03-10-2024 End: 03-10-2024 ambulatory ASHLEY HERNANDEZGEL Not Available Start: 11-25-2023 End: 11-25-2023 ambulatory RUTHANN A HACKENBURG Not Available Start: 10-28-2023 End: 10-28-2023 ambulatory RUTHANN A HACKENBURG Not Available Start: 10-23-2023 End: 10-23-2023 ambulatory SAVITAORIN LUNA [facility] Start: 10-23-2023 End: 10-23-2023 Patient encounter procedure [facility] Work Phone: Start: 10-23-2023 End: 10-23-2023 Periodic preventive med est patient 18-39 yrs [facility] Comment on above: Well woman exam with routine gynecological exam (Primary Dx); Standardized adult depression screening tool completed Start: 07-21-2023 End: 07-21-2023 ambulatory SARAH LO Not Available Start: 11-21-2022 End: 11-21-2022 ambulatory SAVITA MARROQUIN Facility:[facility] Start: 10-02-2022 End: 10-03-2022 ambulatory LATANYA CHANG Facility:[facility] Procedures Date Procedure Procedure Detail Performing Clinician Start: 10-23-2023 Adult depression scr eening assessment [facility] Start: 10-09-2022 Microscopic observat ion [Identifier] in Cervix by Cyto stain [facility] Plan of Treatment Date Care Activity Detail Author Start: 04-05-2031 DTaP,Tdap and Td Vaccines (7 - Td or Tdap) DTaP,Tdap and Td Vaccines (7 - Td or Tdap) [facility] Start: 10-09-2025 Screening for malign ant neoplasm of cervix Pap Smear [facility] Start: 06-04-2024 Adult BMI Screening Adult BMI Screen ing [facility] Start: 06-04-2024 Tobacco Screening Tobacco Screening [facility] Start: 10-09-2023 Adult BMI Follow Up Plan Adult BMI Follow Up Plan [facility] Start: 05-02-2023 COVID-19 Vaccine ( season) COVID-19 Vaccine ( season) [facility] Start: 05-02-2023 Influenza vaccination Influenza Vacc ine [facility] Start: 07-12-2022 Depression Screening Depression Scre ening [facility] Start: 1995 Tobacco Counseling Tobacco Counselin g [facility] Immunizations Immunization Date Immunization Notes Care Provider Roma fuentes 06-02-2021 COVID-19 Vaccine, vector-nr, rS-Ad26, PF, 0.5mL [facility] 04-05-2021 tetanus toxoid, redu allyn diphtheria toxoid, and acellular pertussis vaccine, adsorbed [facility] NEGATED: Highlighted row has not occurred!09-03-2018 measles, mumps and rubella virus vaccine [facility] Comment on above: Deferred: Other - ru cris immune NEGATED: Highlighted row has not occurred!09-03-2018 tetanus toxoid, reduced diphtheria toxoid, and acellular pertussis vaccine, adsorbed [facility] Payers Date Payer Category Payer Medicaid [employer] [facility] [id number] 2022-Present [address] [place] [address] [id number] 2022 Medicaid [id number] 1997 Unknown [id number] 1997 Unknown [id number] 1997 Unknown [id number] 1997 Unknown [id number] 1997 Unknown [id number] 1997 Unknown [id number] 1997 Unknown [id number] 1997 Unknown [id number] Social History Date Type Detail Facility Start: 10-23-2023 Tobacco smoking stat [facility] Smokes tobacco daily [facility] History of tobacco use Cigar Smoker [facility] Start: 10-23-2023 Tobacco use and exposure Smokeless tobacco non-user [facility] Start: 10-23-2023 Alcohol intake Ex-drinker (finding) [facility] Start: 10-03-2020 End: 10-23-2023 History of Social function [facility] Start: 10-03-2020 End: 10-23-2023 Tobacco use panel [facility] How hard is it for y ou to pay for the very basics like food, housing, medical care, and heating Not hard at all [facility] The thought of kelsey greco myself has occurred to me Never [facility] Start: 05-10-2020 Alcohol Comment socially Bailee [facility] Start: 1995 Sex Assigned At Not on file P [facility] History of Present illness Narrative 10-23-2023 Megha Ruiz, OWNER/OPERATOR-TRANSFORMER TESTER - 10/23/2023 9:00 AM EST Note Date & Type Note Facility 10-23-2023 History of Present illness Narrative Annual Well Woman Visit 10/23/2023 Nicky Hansen is a 28 y.o. 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 Periods are irregular with Nexplanon, lasting 3 days. Dysmenorrhea: none. Cyclic symptoms include none. Denies intermenstrual bleeding, spotting, or abnormal discharge. Denies pelvic pain. Patient declines STD testing today. Complaints today: none Relationship status: in a relationship The patient reports that there is not domestic violence in her life. Sexually active: Yes Sexual concerns: none Patient works: unemployed Smoker (1 cigar per day) IF Yes , motivated to quit NO Children YES How many Two c-sections Current contraception: NEXPLANON History of abnormal Pap smear: yes - 2018 Last pap: 10-09-2022-NEG Regular self breast exam: yes Last mammogram: NA Family history of breast cancer: no Family history of uterine or ovarian cancer: no Family history of pancreatic or prostate cancer: no Family history of colon cancer: no Covid vaccinated: 1 DOSE HPV vaccinated: YES PHQ9 depression screenin LMP 10/09/2023 OB History 3 Para 2 Term 2 0 AB 0 Living 2 SAB 0 IAB 0 Ectopic 0 Multiple 0 Live Births 2 The following portions of the patient's history were reviewed and updated as appropriate: allergies, current medications, past family history, past medical history, past social history, past surgical history and problem list. MEDICAL HX Past Medical History: Diagnosis Date Epilepsy ([facility]) History of gestational hypertension 05/10/2020 On daily baby ASA Baseline PCR 0.09 HPV (human papilloma virus) infection Seizures (CMS-HCC) SURGICAL HX Past Surgical History: Procedure Laterality Date N/A 08/31/2018 Performed by En [place] MD at [facility] OR REPEAT N/A 05/31/2021 Performed by En Montana MD at [facility] OR TONSILLECTOMY WISDOM TOOTH EXTRACTION FAMILY HX Family History Problem Relation Age of Onset No Known Problems Paternal Grandmother Bipolar disorder Maternal Grandmother Lung cancer Father No Known Problems Brother Diabetes Sister Bipolar disorder Sister Epilepsy Paternal Uncle Breast cancer Neg Hx Colon cancer Neg Hx Cancer Neg Hx Ovarian cancer Neg Hx Stroke Neg Hx Uterine cancer Neg Hx MEDS Current Outpatient Medications Medication Sig Dispense Refill lamoTRIgine (LaMICtal) 100 mg tablet Take 225 mg by mouth 2 (two) times a day. levETIRAcetam (KEPPRA) 1000 mg tablet Take 2 tablets (2,000 mg total) by mouth in the morning and 2 tablets (2,000 mg total) before bedtime. venlafaxine (EFFEXOR) 75 mg tablet Take 1 tablet (75 mg total) by mouth in the morning and 1 tablet (75 mg total) in the evening. Take with meals. buPROPion XL (WELLBUTRIN XL) 150 mg 24 hr tablet Take 1 tablet (150 mg total) by mouth in the morning. (Patient not taking: Reported on 10/23/2023) 90 tablet 3 ondansetron (ZOFRAN) 4 mg tablet Take 2 tablets (8 mg total) by mouth in the morning and 2 tablets (8 mg total) before bedtime. (Patient not taking: Reported on 06/04/2023) rizatriptan (MAXALT) 10 mg tablet Take 1 tablet (10 mg total) by mouth once as needed for migraine. May repeat in 2 hours if unresolved. Do not exceed 30 mg in 24 hours. (Patient not taking: Reported on 06/04/2023) sertraline (ZOLOFT) 25 mg tablet Take 1 tablet (25 mg total) by mouth in the morning. (Patient not taking: Reported on 06/04/2023) No current facility-administered medications for this visit. ALLERGIES No Known Allergies Review of Systems Constitutional: Negative. Respiratory: Negative. Negative for chest tightness and shortness of breath. Cardiovascular: Negative. Negative for chest pain and palpitations. Gastrointestinal: Positive for nausea. Negative for constipation and diarrhea. Endocrine: Negative. Genitourinary: Negative. Negative for dyspareunia, menstrual problem and pelvic pain. Musculoskeletal: Negative. Skin: Negative. Allergic/Immunologic: Negative. Neurological: Negative. Hematological: Negative. Psychiatric/Behavioral: Negative. Objective BP 122/76 Ht 172.7 cm (5' 8 ) Wt 94.8 kg (209 lb) LMP 10/09/2023 BMI 31.78 kg/m Physical Exam Vitals and nursing note reviewed. Constitutional: Appearance: Normal appearance. HENT: Head: Normocephalic and atraumatic. Cardiovascular: Rate and Rhythm: Normal rate and regular rhythm. Pulses: Normal pulses. Heart sounds: Normal heart sounds. Pulmonary: Effort: Pulmonary effort is normal. Breath sounds: Normal breath sounds. Chest: Breasts: Breasts are symmetrical. Right: Normal. No mass, skin change or tenderness. Left: Normal. No mass, skin change or tenderness. Abdominal: General: Bowel sounds are normal. Palpations: Abdomen is soft. Genitourinary: General: Normal vulva. Labia: Right: No rash or lesion. Left: No rash or lesion. Vagina: Normal. Cervix: Normal. Uterus: Normal. Not enlarged and not tender. Adnexa: Right adnexa normal and left adnexa normal. Right: No mass, tenderness or fullness. Left: No mass, tenderness or fullness. Musculoskeletal: General: Normal range of motion. Cervical back: Normal range of motion and neck supple. Skin: General: Skin is warm and dry. Neurological: Mental Status: She is alert and oriented to person, place, and time. Psychiatric: Mood and Affect: Mood normal. Speech: Speech normal. Behavior: Behavior normal. Thought Content: Thought content normal. Judgment: Judgment normal. Assessment/Plan: Myah was seen today for gynecologic exam. Diagnoses and all orders for this visit: Well woman exam with routine gynecological exam Standardized adult depression screening tool completed BMI is above average; Discussed eating tips for weight loss and and exercise steps. Breast self exam technique reviewed and patient encouraged to perform self-exam monthly. Discussed healthy lifestyle modifications. Educational material distributed. Follow up in 1 year for annual hardscape foreman exam. Follow up as needed. Next pap due 2025 per ASCCP guidelines. Discussed taking a multivitamin. Discussed Calcium and Vitamin D for prevention of osteoporosis. Encouraged smoking cessation. Discussed need for yearly mammogram after 40 yo. Discussed colon cancer screening recommendations to begin at 45 yo, patient to discuss with PCP. All questions answered. LIGIA Tapia, OWNER/OPERATOR-TRANSFORMER TESTER MeghaDONNY Machado 10/23/23 0929 documented in this encounter [facility] Evaluation note Note Date & Type Note Facility Evaluation note Diagnosis Well woman exam with routine gynecological exam- Primary Routine gynecological examination Standardized adult depression screening tool completed documented in this encounter [facility] Instructions Attachments Note Date & Type Note Facility Instructions The following attachments cannot be sent through Care Everywhere.How to Perform Breast Self-Examination (Maltese)Quitting smoking (Maltese)documented in this encounter [facility] Summary Purpose Family History No Family History Records FoundNo Family History Records FoundNo Family History Records FoundNo Family History Records FoundNo Family History Records FoundNo Family History Records Found Advance Directives Latest Code Status on File Code Status Date Activated Date Inactivated Comments Full Code 05/31/2021 12:35 PM 06/02/2021 7:19 PM Additional Source Comments INFORMATION SOURCE (unrecogn ized section and content) DATE CREATED AUTHOR 10/09/2020 [facility] DATE CREATED AUTHOR AUTHOR'S ORGANIZ ATION 05/28/2022 [facility] dical Specialist DATE CREATED AUTHOR AUTHOR'S ORGANIZ ATION 11/25/2022 [facility] DATE CREATED AUTHOR AUTHOR'S ORGANIZ ATION 06/10/2023 [facility] DATE CREATED AUTHOR AUTHOR'S ORGANIZ ATION 10/31/2023 [facility] DATE CREATED AUTHOR AUTHOR'S ORGANIZ ATION 03/17/2024 [facility] dical Specialists EPIC Reason for Visit (unrecogniz ed section and content) Reason Comments Gynecologic Exam Pt is here for annua l exam. Care Teams (unrecognized sec tion and content) Addiction Social Worker Relationship Specialty Start Date End Date Savita Han, DEONTE-TRANSFORMER TESTER [address] [place] [id number] PCP - General Nurse Practitioner 01/17/21 FOR RECORDS PERTAINING TO PATIENTS WHO ARE OR HAVE BEEN ENROLLED IN A CHEMICAL DEPENDENCY/SUBSTANCEABUSE PROGRAM, SOME INFORMATION MAY BE OMITTED. This clinical summary was aggregated from multiple sources. Caution should be exercised in using it in the provision of clinical care. This summary normalizes information from multiple sources, and as a consequence, information in this document may materially change the coding, format and clinical context of patient data. In addition, data may be omitted in some cases. CLINICAL DECISIONS SHOULD BE BASED ON THE PRIMARY CLINICAL RECORDS. [employer] [facility]. provides no warranty or guarantee of the accuracy or completeness of information in this document.
--- OUTSIDE RECORDS SUMMARY | 2025-04-17 13:30 | XMS_ITS | Clinical Summary ---
Author Organization [employer] [facility] tem Address [id number] [address] [place] [address] Care Team Providers Care Sales Representative Gas Service Name Role Phone Savita Han APRN-CLAUDIA Primary Car e Provider Allergies No known active allergies Medications levETIRAcetam (KEPPRA) 1000 mg tablet Take 2 tablets (2,000 mg total) by mouth in the morning and 2 tablets (2,000 mg total) before bedtime. Active lamoTRIgine (LaMICtal) 100 mg tablet Take 225 mg by mouth 2 (two) times a day. Active ondansetron (ZOFRAN) 4 mg tablet Take 2 tablets (8 mg total) by mouth in the morning and 2 tablets (8 mg total) before bedtime. Active sertraline (ZOLOFT) 25 mg tablet Take 1 tablet (25 mg total) by mouth in the morning. Active rizatriptan (MAXALT) 10 mg tablet Take 1 tablet (10 mg total) by mouth once as needed for migraine. May repeat in 2 hours if unresolved. Do not exceed 30 mg in 24 hours. Active venlafaxine (EFFEXOR) 75 mg tablet Take 1 tablet (75 mg total) by mouth in the morning and 1 tablet (75 mg total) in the evening. Take with meals. 09/22/2023 Active Active Problems Problem Noted Date Diagnosed Date Nexplanon in place 10/15/2022 Overview (10/15/2022): Nexplanon inserted 10/15/22 by Charlie Ruiz CNP Smoker 10/09/2022 Overview (10/09/2022): Encouraged cessation Marijuana use 11/03/2020 Overview (04/05/2021): + UDS Mild intermittent asthma without complication ASCUS with positive high risk HPV cervical 10/26 Overview (04/05/2021): 10/14/18 pap ASCUS, other HR HPV+ 05/22: Pap smear NILM (no co-testing performed) Plan: patient would like to wait until 05/23 to have repeat co-testing Epilepsy 05/07/2018 Resolved Problems Problem Noted Date Diagnosed Date Resolved Date 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 Germinal cyst identified during her . MRI at [facility] on 08/11/2018 with intracranial bleeding. Required section S/p MFM consult Indirect platelet alloantibody: negative (02/19/21) Ok for vaginal delivery per MFM Immunizations Immunization Administration Dates Next Due COVID-19 Vaccine, vector-nr, rS-Ad26, PF, 0.5mL 06/02/2021 MMR 09/03/2018(Deferred: Other - rubella immune) Tdap 04/05/2021,09/03/2018() Family History Medical History Relation Name Comments No Known Problems Brother Lung cancer Father Bipolar disorder Maternal Grandmother No Known Problems Paternal Grandmother Epilepsy Paternal Uncle Bipolar disorder Sister Diabetes Sister Breast cancer Neg Hx Cancer Neg Hx Colon cancer Neg Hx Ovarian cancer Neg Hx Stroke Neg Hx Uterine cancer Neg Hx Relation Name Status Comments Brother Alive Father Alive Maternal Grandfather Maternal Grandmother Mother Alive Paternal Grandfather Paternal Grandmother Paternal Uncle Sister Alive Social History Tobacco Use Types Packs/Day Years Used Date Smoking Tobacco: Every Day Cigars Smokeless Tobacco: Never Tobacco Cessation:Ready to Q uit: Not Asked; Counseling Given: Not Answered Alcohol Use Standard Drinks/Week Comments Not Currently 0 (1 standard drink = 0.6 oz pur e alcohol) socially Overall Financial Resource Strain (CARDIA) Answe r Date Recorded How hard is it for you to pa y for the very basics like food, housing, medical care, and heating? Not hard at all 06/13/2021 PHQ-2 Answer Date Recorded Total Score 11 10/23/2023 Cary Depression Scale Answer Date Recorded Cary Depression Scale Total 7 07/12/2021 The thought of harming myself has occurred to me . Never 07/12/2021 Childcare Answer Date Recorded Do problems getting child ca re make it difficult for you to work or study? No 06/13/2021 Employment Answer Date Recorded Employment Unknown 02/10/2019 Hunger Screening Answer Date Recorded Within the past 12 months we worried whether our food would run out before we got money to buy more. Never True 10/23/2023 Within the past 12 months th e food we bought just didn't last and we didn't have money to get more. Never True 10/23/2023 Purpose - Life Answer Date Recorded Purpose and direction in life Unknown Comments No Sex and Gender Information Value Date Recorded Sex Assigned at Not on file Legal Sex Female 12:07 PM EDT Gender Identity Not on file Sexual Orientation Not on file Last Filed Vital Signs Vital Sign Reading Time Taken Comments Blood Pressure 122/76 10/23/2023 9:15 AM EST Pulse 72 09/11/2021 2:19 PM EST Temperature 37.1 C (98.8 F) 06/13/2021 11:23 AM EDT Respiratory Rate 16 09/11/2021 2:19 PM EST Oxygen Saturation 98% 06/02/2021 4:56 AM EDT Inhaled Oxygen Concentration - - Weight 94.8 kg (209 lb) 10/23/2023 9:15 AM EST Height 172.7 cm (5' 8 ) 10/23/2023 9:15 AM EST Body Mass Index 31.78 10/23/2023 9:15 AM EST Plan of Treatment Health Maintenance Due Date Last Done Comments COVID-19 Vaccine (2023-10 5 season) 2024 06/02/2021 Adult BMI Screening 10/23/2024 10/23/2023 Depression Screening 10/23/2024 10/23/2023, 07/12/20 21 Tobacco Screening 10/23/2024 10/23/2023 Influenza Vaccine 05/02/2025 Pap Smear 10/09/2025 10/09/2022, 05/2020, 10/14/2018, Additional history exists DTaP,Tdap and Td Vaccines (7 - Td or Tdap) 04/05/2031 04/05/2021, 07/20/2001, 03/21/1998, Additional history exists Medical Devices Not on file Procedures Procedure Name Priority Date/Time Associated Diagnosis Comments PAP SMEAR Routine 10/09/2022 5:17 AM EST Screening for cervical cancer from Last 3 Months or Most Recently Relevant to Health Maintenance Results * Pap Smear (10/09/2022 5:17 AM EST) 10/09/2022 5:17 AM EST 10/09/2022 5:18 AM EST Narrative COPATH - 10/10/2022 11:38 AM EST [facility] [address] [place] [address] Gynecologic Cytology Consultation Patient Name:MYAH MEADOWS:1995 (Age: 27)Gender:FTaken:10/09/2022Reported:10/10/2022hysician(s):Megha Ruiz APRN-CNPCopy To: Rec. #:[id number]: #[id number] Final Cytologic Interpretation ThinPrep Pap Test (Cervical): Satisfactory for evaluation. A transformation zone component is present. NEGATIVE FOR INTRAEPITHELIAL LESION OR MALIGNANCY. Comment: This ThinPrep slide could not be successfully imaged by the [employer] ThinPrep Imaging System so it was manually screened. gx10/10/2022 [place] [address], License number: [id number]. Electronically Signed Out By Kelley LAURA([facility]) Date of Last Menstrual Period: 10/06/22 Other Clinical Conditions: Oral contraceptive Z12.4 Screening for malignant neoplasm of cervix Source of Specimen ThinPrep Pap Test (Cervical) Thin Prep Pap (DSP ENGINEER) Fee Code(s): G0123 us Megha Ribera VE TEACHER-READY MIX TRUCK DRIVER PATHOLOGY/CYTOLOGY ORDER AGUSTIN Final Result COPATH from Last 3 Months or Most Recently Relevant to Health Maintenance Insurance [facility] MEDICAID Advance Directives * Full Code (Latest Code Status on File) Date Activated Date Inactivated Comments 05/31/2021 12:35 PM 06/02/2021 7:19 PM Care Teams Sales Representative Gas Service Relationship Specialty Start Date End Date Savita Han, VE TEACHER-READY MIX TRUCK DRIVER [address] [place] [id number] PCP - General Nurse Practitioner 01/17/21
--- OUTSIDE RECORDS SUMMARY | 2025-04-17 13:30 | XMS_ITS | Encounter Summary ---
Author Organization [facility] Address [address] [place] [address] Care Team Providers Care Internal Combustion Engine Inspector Name Role Phone Danika Espinal MD Primary Care Provider [phone] Reason for Visit * Reason Comments Med Refill Encounter Details Date Type Department Care Team (Late st Contact Info) Description 02/18/2024 Refill [facility] Family Medicine [address] [place] [address] Carmen Hare NP [address] [facility] [address] [place] [phone] Moderate episode of recurrent major depressive disorder [...] Telephone Encounter - Charity Ulloa MA - 02/18/2024 11:17 AM EDT Approving, but needs appt for additional refills. documented in this encounter Plan of Treatment Not on file documented as of this encounter Visit Diagnoses Diagnosis Moderate episode of recurrent major depressive disorder (HCC) documented in this encounter Additional Health Concerns Assessment Noted Time PHQ-9 Depression Total Score: 4 11/25/19 8:57 AM EDT documented as of this encounter Care Teams Internal Combustion Engine Inspector Relationship Specialty Start Date End Date Danika Espinal MD [address] [place] [address] PCP - General Family Medicine 10/28/23 documented as of this encounter
--- OUTSIDE RECORDS SUMMARY | 2025-04-17 13:30 | XMS_ITS | Encounter Summary ---
Author Organization [facility] [employer] [facility] tem Address [id number] [address] [place] [address] Care Team Providers Care Rib Builder Name Role Phone Savita Han ORNAMENTAL BRONZE WORKER-TALENT DEVELOPMENT DIRECTOR Primary Car e Provider Encounter Details Date Type Department Care Team (Late st Contact Info) Description 04/13/2020 [facility]phone [facility]Gynecology [address] [place] [phone] Tete Spaulding MA Social History Tobacco Use Types Packs/Day Years Used Date Smoking Tobacco: Never Smokeless Tobacco: Never Alcohol Use Standard Drinks/Week Comments No 0 (1 standard drink = 0.6 oz pur e alcohol) Childcare Answer Date Recorded Childcare Unknown 02/10/2019 Employment Answer Date Recorded Employment Unknown 02/10/2019 Comments No Sex and Gender Information Value Date Recorded Sex Assigned at Not on file Legal Sex Female 12:07 PM EDT Gender Identity Not on file Sexual Orientation Not on file documented as of this encounter Miscellaneous Notes * Telephone Encounter - Tete Spaulding MA - 04/13/2020 3:42 PM EDT Patient is a new patient to us, she was seeing [facility] in [place] but she is not seeing us until the end of the month. Her BC ends Friday and would like a refill to get her through [employer] appt to see us. We are on same system as previous provider. BC patient is on is correct in medslist. Please advise thanks Tete Spaulding MA 04/13/20 7947 * Telephone Encounter - DONNY Gonzalez - 04/13/2020 3:42 PM EDT RX sent for one month supply documented in this encounter Plan of Treatment Not on file documented as of this encounter Visit Diagnoses Not on filedocumented in this encounter Care Teams Rib Builder Relationship Specialty Start Date End Date Savita Han APRN-CNP [address] [place] [address] PCP - General Nurse Practitioner 01/17/21 documented as of this encounter
--- NOTE | 2025-04-17 13:45 | ED_ITS ---
HPI HPI - General Adult General Chief complaint: Head Injury Stated complaint: SEIZURE, RASH Time Seen by Provider: 04/17/25 13:40 Source: patient Mode of arrival: walk-in Limitations: no limitations History of Present Illness HPI narrative: 30-year-old female presented for a seizure. She had a seizure this morning and has not had one for about 6 years. She is on antiseizure medication and has been taking it. She had awoken with bruise by her right eye and an abrasion by her nose and a bruise on her right upper lip as well. Her gives most of the history and explains that he saw the seizure and then she was postictal but now she is becoming back to herself but is not completely back to her baseline. No injury to her chest or abdomen or extremities. Related Data Home Medications ?Medication ?Instructions ?Recorded ?Confirmed Keppra 04/17/25 lamotrigine 100 mg tablet mg 04/17/25 Previous Rx's ?Medication ?Instructions ?Recorded hydrocodone 5 mg-acetaminophen 325 1 tab PO Q6H PRN pa in 3 days #12 05/01/24 mg tablet tabs ketorolac 10 mg tablet 10 mg PO TID PRN pain #10 ta bs 05/01/24 Allergies Allergy/AdvReac Type Severity Reaction Status Date / Time No Known Drug Allergies Allergy Verified 05/01/24 14:48 Opioid HPI Opioid Management Most Recent Opioid Data: Last Pain Scale 8 05/01/24, 15:14 Review of Systems ROS Narrative A ten point review of systems is negative except as noted above. PFSH PFSH Social History Little interest or pleasure in doing things: not at all Feeling down, depressed, or hopeless: not at all Exam Narrative Exam Narrative: Nurses note and vital signs reviewed and patient is not hypoxic. General: The patient appears well and in no apparent distress. Patient is resting comfortably on cart. Skin: Warm, dry, no pallor noted. There is no rash noted. Head: Normocephalic, no scalp hematoma Eye: Normal conjunctiva, no drainage, EOMI. PERRL there is bruising around her right eye. Ears, Nose, Mouth, and Throat: oral mucosa is moist. Nares patent. There is an abrasion at the inferior lateral aspect of her nose on the right side. Cardiovascular: Regular Rate and Rhythm Respiratory: Patient is in no distress, no accessory muscle use, lungs are clear to auscultation, no wheezing, rales or rhonchi Back: non-tender GI: Soft and nontender Musculoskeletal: The patient has no evidence of calf tenderness, no pitting edema, symmetrical pulses noted bilaterally Neurological: A&O x4, normal speech. Seems to prefer to keep her eyes closed but will open them when spoken to. Psychiatric: Cooperative Constitutional Vital Signs, click to edit/add: Last Vital Signs Temp 98.5 F 04/17/25 13:20 Pulse 68 04/17/25 14:10 Resp 18 04/17/25 14:10 BP 127/94 H 04/17/25 14:00 Pulse Ox 100 04/17/25 14:10 O2 Del Method Room Air 04/17/25 13:20 Course Vital Signs Vital signs: Vital Signs Pulse Oximetry 97 04/17/25 13:10 Temperature 98.5 F 04/17/25 13:20 Pulse Rate 68 04/17/25 14:10 Respiratory Rate 18 04/17/25 14:10 Blood Pressure 127/94 H 04/17/25 14:00 Pulse Oximetry 100 04/17/25 14:10 Oxygen Delivery Method Room Air 04/17/25 13:20 Medical Decision Making MDM Narrative Medical decision making narrative: Her workup including CT of the brain is negative. She had a breakthrough seizure today and will be discharged home and will follow-up with her neurologist. She they will call the office in the morning. No evidence of intracranial hemorrhage. Treatment diagnosis and follow-up were discussed with the patient and her . Differential Diagnosis Differential Diagnosis: Contusion, intracranial hemorrhage, breakthrough seizure Lab Data Lab results reviewed: Yes I reviewed the patient's lab results Labs: Lab Results 04/17/25 Range/Units 13:50 WBC 11.5 H (4.0-11.0) 10^3/uL RBC 4.53 (4.20-5.40) 10^6/uL Hgb 14.3 (12.0-16.0) g/dL Hct 40.8 (36.0-48.0) % MCV 90.1 (81.0-99.0) fL MCH 31.6 (26.7-34.0) pg MCHC 35.0 (29.9-35.2) g/dL RDW 11.9 (11.0-15.0) % Plt Count 264 (150-450) 10^3/uL MPV 10.1 (9.5-13.5) fL Neut % (Auto) 85.4 H (43.0-75.0) % Lymph % (Auto) 10.3 L (20.5-60.0) % Billings % (Auto) 3.5 (1.7-12.0) % Eos % (Auto) 0.3 L (0.9-7.0) % Baso % (Auto) 0.2 (0.2-2.0) % Neut # (Auto) 9.8 H (1.4-6.5) 10^3/uL Lymph # (Auto) 1.2 (1.2-3.8) 10^3/uL Billings # (Auto) 0.4 (0.3-0.8) 10^3/uL Eos # (Auto) 0.0 (0.0-0.7) 10^3/uL Baso # (Auto) 0.0 (0.0-0.1) 10^3/uL Abs Immat Gran (auto) 0.03 (0.00-0.03) 10^3/uL Imm/Tot Granulo (auto) 0.3 (0.0-0.5) % Sodium 142 (136-145) mmol/L Potassium 3.9 (3.5-5.1) mmol/L Chloride 106 (98-107) mmol/L Carbon Dioxide 25.2 (21.0-32.0) mmol/L Anion Gap 14.7 BUN 7.0 (7.0-18.0) mg/dL Creatinine 0.62 (0.55-1.02) mg/dL Est GFR ( Amer) >60 (>=60 mL/min/1.73m^2) Est GFR (Non-Af Amer) >60 (>=60 mL/min/1.73m^2) BUN/Creatinine Ratio 11.3 Glucose 101 (74-106) mg/dL Calcium 9.1 (8.5-10.1) mg/dL Serum HCG, Qual Negative (NEGATIVE) Imaging Data CT scan - head: Radiologist's impression: ITS Impressions Head CT 04/17/25 13:45 IMPRESSION: NO ACUTE INTRACRANIAL ABNORMALITY. Impression dictated by: Neftaly Montalvo Jr., D.O. 04/17/2025 2:36 PM Dictation Location: [facility] Electronically authenticated by: [id number] Y Date: 04/17/2025 14:36 ECG Data Attestation: I personally reviewed and interpreted this ECG as follows: (EKG on my interpretation shows normal sinus rhythm with a rate of 61.) Discharge Plan Discharge Chief Complaint: Head Injury Clinical Impression: Contusion of face, Breakthrough seizure Patient Disposition: Home, Self-Care Time of Disposition Decision: 15:03 Condition: Good Mode of Transportation: Private Vehicle Prescriptions / Home Meds: No Action lamotrigine 100 mg tablet Keppra Rx Instructions: 2000mg bid hydrocodone-acetaminophen 5-325 mg tablet 1 tab PO Q6H PRN (Reason: pain) 3 Days Qty: 12 0RF Rx Instructions: DX: M25.561 ketorolac 10 mg tablet 10 mg PO TID PRN (Reason: pain) Qty: 10 0RF Print Language: Korean Instructions: Recurrent Seizures in Adults (ED), Facial Contusion (ED) Additional Instructions: Call your neurologist in the morning for medication management. Referrals: JG SANCHEZ [Primary Care Provider, Family Practice] - 1 week
--- NOTE | 2025-04-17 13:45 | ECG_ITS ---
The [facility] Test Date: 2025-04-17 Pat Name: LUIS MEADOWS Department: Room: - Gender: Female Electrical Worker: : 1995 Requested By: Dotty Ratliff Order Number: [id number] Reading MD: RUFINA PINO M.D. Measurements Intervals [place] Rate: 61 P: 30 UT: 170 QRS: 34 QRSD: 100 T: 10 QT: 410 QTc: 414 Interpretive Statements 1100 Sinus rhythm 1108 Marked sinus arrhythmia 9130 borderline ECG No previous ECG available for comparison Electronically Signed On 04-18-2025 17:42:52 EDT by RUFINA PINO M.D.
--- NOTE | 2025-04-17 13:45 | CT_ITS ---
The [address] [address] Patient Name: LUIS MEADOWS MRN: [id number] date: 1995 Sex: F Assigned Patient Location: ER Current Patient Location: ER Accession/Order Number: [id number] Exam Date: 04/17/2025 14:35 Report Date: 04/17/2025 14:36 At the request of: NII FAGAN MD Procedure: CT head/brain wo con CT BRAIN WITHOUT CONTRAST: CLINICAL HISTORY: Seizure, hit head COMPARISON: None TECHNIQUE: Contiguous axial unenhanced images were obtained through the brain. This CT exam was performed using one or more following dose reduction techniques: Automated exposure control, adjustment of the mA and/or kV according to patient size, or use of iterative reconstruction technique. FINDINGS: There is no evidence of midline shift, intra or extra-axial fluid collection, hemorrhage or CT evidence of stroke. Posterior fossa appears unremarkable. Visualized intraorbital contents demonstrate no acute findings. Visualized paranasal sinuses are clear. The surrounding soft tissues are normal. CT/CT head/brain wo con IMPRESSION: NO ACUTE INTRACRANIAL ABNORMALITY. Impression dictated by: Neftaly Montalvo Jr., D.O. 04/17/2025 2:36 PM Dictation Location: [place] [address] Electronically authenticated by: [id number] Y Date: 04/17/2025 14:36
[2025-04-17 14:02] LABS: Hematocrit 40.8 % (36.0-48.0); Hemoglobin 14.3 g/dL (12.0-16.0); Immature Granulocytes Abs Auto 0.03 10^3/uL (0.00-0.03); Immature Granulocytes Pct Auto 0.3 % (0.0-0.5); Lymphocytes Absolute Auto 1.2 10^3/uL (1.2-3.8); Mean Corpuscular HGB Conc 35.0 g/dL (29.9-35.2); Mean Corpuscular Hemoglobin 31.6 pg (26.7-34.0); Mean Corpuscular Volume 90.1 fL (81.0-99.0); Platelet Count 264 10^3/uL (150-450); Red Blood Count 4.53 10^6/uL (4.20-5.40); White Blood Count 11.5 10^3/uL (4.0-11.0)
[2025-04-17 14:10] LABS: Anion Gap 14.7; Blood Urea Nitrogen 7.0 mg/dL (7.0-18.0); Calcium 9.1 mg/dL (8.5-10.1); Carbon Dioxide 25.2 mmol/L (21.0-32.0); Chloride 106 mmol/L (98-107); Estimated GFR (African America >60 (>=60 mL/min/1.73m^2); Estimated GFR (Non-African Ame >60 (>=60 mL/min/1.73m^2); Glucose 101 mg/dL (74-106); Potassium 3.9 mmol/L (3.5-5.1); Sodium 142 mmol/L (136-145)
== END 2025-04-17 15:28 | disposition home or self-care (01) ==
PROVIDERS: Emergency Provider Emergency Medicine; PCP Family Medicine
DX: S00.83XA Contusion of other part of head, initial encounter (principal); G40.909 Epilepsy, unspecified, not intractable, without status epilepticus; S00.11XA Contusion of right eyelid and periocular area, initial encounter; S00.31XA Abrasion of nose, initial encounter; S00.531A Contusion of lip, initial encounter
CPT/HCPCS: 36415; 70450; 80048; 84703; 85025; 93005; 99285

== ENCOUNTER 2025-04-17 19:27 | Emergency (ER) | payer SELFPAY ==
[2025-04-17] VITALS (13 sets, daily range): BP systolic 137; BP diastolic 93; PULSE 58–87; TEMP 37.4; O2SAT 96–100; BMI 33.1
--- OUTSIDE RECORDS SUMMARY | 2025-04-17 19:32 | XMS_ITS | Encounter Summary ---
Author Organization [facility] [employer] s tem Address [id number] [address] [place] [address] Care Team Providers Care Transformation Lead Name Role Phone Savita Han DEPENDENCY DIRECTOR-STEELER Primary Car e Provider Encounter Details Date Type Department Care Team (Late st Contact Info) Description 04/13/2020 [facility] [address] [phone] Tete Spaulding MA Social History Tobacco Use [...] she was seeing [facility] in [place] but she is not seeing us until the end of the month. Her BC ends Friday and would like a refill to get her through [employer] appt to see us. We are on same system as previous provider. BC patient is on is correct in medslist. Please advise thanks Tete Spaulding MA 04/13/20 9439 * Telephone Encounter - DONNY Gonzalez - 04/13/2020 3:42 PM EDT RX sent for one month supply documented in this encounter Plan of Treatment Not on file documented as of this encounter Visit Diagnoses Not on filedocumented in this encounter Care Teams Transformation Lead Relationship Specialty Start Date End Date Savita Han APRN-CNP [address] [place] [id number] PCP - General Nurse Practitioner 01/17/21 documented as of this encounter
--- OUTSIDE RECORDS SUMMARY | 2025-04-17 19:32 | XMS_ITS | Encounter Summary ---
Author Organization [facility] Address [address] [place] [address] Care Team Providers Care Blueprint Maker Name Role Phone Danika Espinal MD Primary Care Provider [phone] Reason for Visit * Reason Comments Med Refill Encounter Details Date Type Department Care Team (Late st Contact Info) Description 02/18/2024 Refill [facility] Family Medicine [address] [place] [address] Carmen Hare NP [address] [facility] 1 [place] [phone] Moderate episode of recurrent major depressive disorder [...] documented as of this encounter Care Teams Blueprint Maker Relationship Specialty Start Date End Date Danika Espinal MD [address] [place] [address] PCP - General Family Medicine 10/28/23 documented as of this encounter
--- OUTSIDE RECORDS SUMMARY | 2025-04-17 19:32 | XMS_ITS | Clinical Summary ---
Author Organization [employer] [facility] tem Address [id number] [address] [place] [address] Care Team Providers Care Gate Supervisor Name Role Phone Savita Han APRN-CLAUDIA Primary [...] cyst identified during her . MRI at [facility] on 08/11/2018 with intracranial bleeding. Required section [...] Answer Date Recorded Total Score 11 10/23/2023 [place] Depression Scale Answer Date Recorded [place] Depression Scale Total 7 07/12/2021 The thought [...] Narrative COPATH - 10/10/2022 11:38 AM EST [facility] [address] [place] [address] Gynecologic Cytology Consultation Patient Name:MAYH MEADOWS:1995 (Age: 27)Gender:FTaken:10/09/2022Reported:10/10/2022hysician(s):Megha Ruiz APRN-CNPCopy To: Rec. #:[id number]: #[id number] Final Cytologic Interpretation ThinPrep Pap Test (Cervical): Satisfactory for evaluation. A transformation zone component is present. NEGATIVE FOR INTRAEPITHELIAL LESION OR MALIGNANCY. Comment: This ThinPrep slide could not be successfully imaged by the [employer] ThinPrep Imaging System so it was manually screened. gx10/10/2022 Interpretation [place] [address], License number: [id number]. Electronically Signed Out By Kelley LAURA([facility]) Date of Last Menstrual Period: 10/06/22 Other Clinical Conditions: Oral contraceptive Z12.4 Screening for malignant neoplasm of cervix Source of Specimen ThinPrep Pap Test (Cervical) Thin Prep Pap (FOUNDRY HAND) Fee Code(s): G0123 us Megha Ribera ENTRY LEVEL JAVA DEVELOPER-ASSOCIATE PROFESSOR OF SOCIOLOGY PATHOLOGY/CYTOLOGY ORDER AGUSTIN Final Result COPATH from Last 3 Months or Most Recently Relevant to Health Maintenance Insurance [facility] MEDICAID Advance Directives * Full Code (Latest Code Status on File) Date Activated Date Inactivated Comments 05/31/2021 12:35 PM 06/02/2021 7:19 PM Care Teams Gate Supervisor Relationship Specialty Start Date End Date Savita Han, ENTRY LEVEL JAVA DEVELOPER-ASSOCIATE PROFESSOR OF SOCIOLOGY [address] [place] [address] PCP - General Nurse Practitioner 01/17/21
--- OUTSIDE RECORDS SUMMARY | 2025-04-17 19:32 | XMS_ITS | Encounter Summary ---
Author Organization [facility] Address [address] [facility] [place] [address] Care Team Providers Care Chin Strap Cutter Name Role Phone Danika Espinal MD Primary Care Provider [phone] Reason for Visit * Reason Comments Med Refill Encounter Details Date Type Department Care Team (Late st Contact Info) Description 04/28/2024 Refill [facility] Medicine [address] [place] [address] Danika Espinal MD [address] [place], [place] [phone] Moderate episode of recurrent major depressive disorder [...] documented as of this encounter Care Teams Chin Strap Cutter Relationship Specialty Start Date End Date Danika Espinal MD [address] [place] [address] PCP - General Family Medicine 10/28/23 documented as of this encounter
--- OUTSIDE RECORDS SUMMARY | 2025-04-17 19:32 | XMS_ITS | Clinical Summary ---
Author Organization [facility] Address [address] [place] [address] Care Team Providers Care Hired Worker Name Role Phone Danika Espinal MD Primary Care Provider [phone] Allergies No known active allergies Medications Spacer/Aero-Holdi [...] (05/09/2023): Nexplanon inserted 10/15/22 by Charlie Ruiz SLIP SHEETER Smoker 10/09/2022 Overview (05/09/2023): Encouraged cessation Atypical [...] Insurance [employer] [place] Care Teams Hired Worker Relationship Specialty Start Date End Date Danika Espinal MD [address] [place] [address] PCP - General Family Medicine 10/28/23
--- OUTSIDE RECORDS SUMMARY | 2025-04-17 19:32 | XMS_ITS | Encounter Summary ---
Author Organization [facility] Address [address] [facility] [place] [address] Care Team Providers Care Manager Web Name Role Phone Danika Espinal MD Primary Care Provider [phone] Reason for Visit * Reason Comments Med Refill Encounter Details Date Type Department Care Team (Late st Contact Info) Description 04/07/2024 Refill [facility] Medicine [address] [place] [address] Danika Espinal MD [address] [place], [place] [id number] Moderate episode of recurrent major depressive disorder [...] documented as of this encounter Care Teams Manager Web Relationship Specialty Start Date End Date Danika Espinal MD [address] [place] [address] PCP - General Family Medicine 10/28/23 documented as of this encounter
--- OUTSIDE RECORDS SUMMARY | 2025-04-17 19:34 | XMS_ITS | CCD ---
Author Organization [facility] InformFormerly [facility] Care Team Providers Care Software Applications Architect Name Role Phone SAVITA MARROQUIN Primary Care [...] Unavailab ASHLEY Garcia Attending Unavailable Scherger Gonya ENTER[employer]ISE RESOURCE PLANNING CONSULTANT-Savita TAYLOR Primary Car e Provider Medications Current [...] 11-25-2022 Episodic Other aftercare (1 source) Other superintendent [employer] (current) drug therapy; Translations: [OTH SENIOR DENTIST CURRENT DRUG THERAPY] Onset: 11-25-2022 Episodic Other [...] Not Available [facility] 06-09-2023 Outside Records [id number] TIFF Normal [facility] Outside [facility] 02-11-2023 Outside Records [id number] IFF [facility] GROUP A STREP CULTUREon 10-31 S. pyogenes [...] S F Tetracycline <=0.25 S F Normal [facility] Comment on above: Performed By: #### G RASTCX, SSCRN #### [facility] [address] [place] [address] Dr. Murtaza Gillespie [facility]31 SARS-CoV-2 (COVID-19) RNA KARIN+probe Ql (Unsp spec) Not detected Normal NOT DETECTED [facility] Comment on above: Result Comment: This test is not yet approved or cleared by the [place] FDA. When there are no FDA-approved or cleared tests available, and other criteria are met, FDA can make tests available under an emergency access mechanism called an Emergency Use Authorization (EUA). The EUA for this test is supported by the [place] of Health and Human Service's (HHS's) declaration [...] SARS-CoV-2. Performed By: #### Matthew BRAMBILA #### [facility] [address] [place] [address] Dr. Murtaza Gillespie ER URINE PROFILEon 3 Bilirubin Ql (U) MODERATE Abnormal NEGATIVE [facility] Comment on above: Performed By: #### LEYDA DANG #### [facility] [address] [place] [address] Dr. Murtaza Gillespie Clarity (U) CLEAR Normal CLEAR [facility] Comment on above: Performed By: #### TERE DANGRO #### [facility] [address] [place] [address] Dr. Murtaza Gillespie Color (U) YELLOW Normal YELLOW [facility] Comment on above: Performed By: #### TERE DANGRO #### [facility] [address] [place] [address] Dr. Murtaza Gillespie ERUAHD A micrscopic examina tion will be performed if indicated. Normal [facility] Comment on above: Performed By: #### TERE DANGRO #### [facility] [address] [place] [address] Dr. Murtaza Gillespie Glucose Ql (U) Negative Normal NEGATIVE [facility] Comment on above: Performed By: #### TERE DANGRO #### [facility] [address] [place] [address] Dr. Murtaza Gillespie Hemoglobin Ql (U) SMALL Abnormal NEGATIVE [facility] Comment on above: Performed By: #### TERE DANGRO #### [facility] [address] [place] [address] Dr. Murtaza Gillespie Ketones Ql (U) >=80 Abnormal NEGATIVE [facility] Comment on above: Performed By: #### TERE DANGRO #### [facility] [address] [place] [address] Dr. Murtaza Gillespie LEUKOCYTES Negative Normal NEGATIVE [facility] Comment on above: Performed By: #### TERE DANGRO #### [facility] [address] [place] [address] Dr. Murtaza Gillespie Nitrite Ql (U) Negative Normal NEGATIVE [facility] Comment on above: Performed By: #### TERE DANGRO #### [facility] [address] [place] [address] Dr. Murtaza Gillespie pH (U) 6.0 [pH] Normal 5-9 [facility] Comment on above: Performed By: #### TERE DANGRO #### [facility] [address] [place] [address] Dr. Murtaza Gillespie Protein (U) [Mass/Vol] 100 mg/dL Abnormal NEGATIVE/ TRACE [facility] Comment on above: Performed By: #### TERE DANGRO #### [facility] [address] [place] [address] Dr. Murtaza Gillespie SPEC GRAVITY 1.015 Normal 1.005-<=1.025 [facility] Comment on above: Performed By: #### TERE DANGRO #### [facility] [address] [place] [address] Dr. Murtaza Gillespie UR MICRO IND INDICATED Normal [facility] Comment on above: Performed By: #### E LEYDA SEO #### [facility] [address] [place] [address] Dr. Murtaza Gillespie Urobilinogen Qn (U) 0.2 {Christie'U}/dL Normal 0.2 - 1.0 [facility] Comment on above: Performed By: #### E LEYDA SEO #### [facility] [address] [place] [address] Dr. Murtaza Gillespie INFLUENZA A AND B AGon 11-21 INFLUANEGH SEE BELOW Normal [facility] Comment on above: Result Comment: Nega tive for Flu A protein angiten. Infection due to Flu A cannot be ruled out. Flu A angiten in the sample may be below the detection limit of the test. Performed By: #### I NFLUAB #### [facility] [address] [place] [address] Dr. Murtaza Gillespie INFLUBNEGH SEE BELOW Normal [facility] Comment on above: Result Comment: Nega tive for Flu B protein antigen. Infection due to Flu B cannot be ruled out. Flu B antigen in the sample may be below the detection limit of the test. Performed By: #### I NFLUAB #### [facility] [address] [place] [address] Dr. Murtaza Gillespie INFLUENZA A AG Negative Normal NEGATIVE SEE COMMENT [facility] Comment on above: Performed By: #### I NFLUAB #### [facility] [address] [place] [address] Dr. Murtaza Gillespie INFLUENZA B AG Negative Normal NEGATIVE SEE COMMENT [facility] Comment on above: Performed By: #### I NFLUAB #### [facility] [address] [place] [address] Dr. Murtaza Gillespie STREPT SCREENon 11-21-2022 STREP SCREEN A Negative Normal NEGATIVE [facility] Comment on above: Performed By: #### G RASTCX, SSCRN #### [facility] [address] [place] [address] Dr. Murtaza Gillespie SYMPTOMATIC COVID-19 ANTIGEN on 11-21-2022 EUA Statement SEE BELOW Normal [facility] Comment on above: Result Comment: This [...] sooner. Performed By: #### C VDAGS #### [facility] [address] [place] [address] Dr. Murtaza Gillespie SARS-CoV-2 (COVID-19) RNA KARIN+probe Ql (Unsp spec) Negative Normal NEGATIVE [facility] Comment on above: Performed By: #### C VERONICAAGS #### [facility] [address] [place] [address] Dr. Murtaza Gillespie URINE MICROSCOPIC ONLYon BACTERIA TRACE Abnormal NONE SEEN [facility] Comment on above: Performed By: #### Kaushal SEO UMICRO #### [facility] [address] [place] [address] Dr. Murtaza Gillespie Bacteria identified Cx Nom (U) NOT INDICATED Normal [facility] Comment on above: Performed By: #### E ASHIAR, UMICRO #### [facility] [address] [place] [address] Dr. Murtaza Gillespie CAST NONE SEEN Normal NONE SEEN [facility] Comment on above: Performed By: #### E ASHIAR UMICRO #### [facility] [address] [place] [address] Dr. Murtaza Gillespie Crystals LM Nom (Urine sed) NONE SEEN Normal NONE SEEN [facility] Comment on above: Performed By: #### E ASHIAR UMICRO #### [facility] [address] [place] [address] Dr. Murtaza Gillespie Epithelial cells LM Ql (Urine sed) FEW Abnormal NONE SEEN /RARE [facility] Comment on above: Performed By: #### LEYDA DANG #### [facility] [address] [place] [address] Dr. Murtaza Gillespie MUCOUS TRACE Abnormal NONE SEEN [facility] Comment on above: Performed By: #### TERE DANGRO #### [facility] [address] [place] [address] Dr. Murtaza Gillespie RBC 2-5 Abnormal 0-2 [facility] Comment on above: Performed By: #### LEYDA DANG #### [facility] [address] [place] [address] Dr. Murtaza Gillespie WBC 0-2 Abnormal NONE SEEN [facility] Comment on above: Performed By: #### LEYDA DANG #### [facility] [address] [place] [address] Dr. Murtaza Gillespie LAMOTRIGINEon 10-04-2022 Lamotrigine, Serum 9.4 ug/mL Normal 2.0-20.0 [facility] Comment on above: Result Comment: Dete ction Limit = 1.0 Performed By: #### L AMOT #### [facility] [address] [place] [address] Dr. Murtaza Gillespie LEVETIRACETAM, SERUM OR PLAS MAon 10-04-2022 Levetiracetam, S 65.1 ug/mL Critically high 10.0-40.0 [facility] Comment on above: Performed By: #### K EPPRA #### [facility] [address] [place] [address] Dr. Murtaza Gillespie CBC AUTO DIFFon 10-02-2022 BASO # 0.0 103/ul Normal 0.0-0.1 [facility] Comment on above: Performed By: #### C BC #### [facility] [address] [place] [address] Dr. Murtaza Gillespie Basophils/100 WBC (Bld) 0.4 % Normal 0.2-2.0 [facility] Comment on above: Performed By: #### C BC #### [facility] [address] [place] [address] Dr. Murtaza Gillespie EO # 0.1 103/ul Normal 0.0-0.7 [facility] Comment on above: Performed By: #### C BC #### [facility] [address] [place] [address] Dr. Murtaza Gillespie Eosinophils/100 WBC (Bld) 1.3 % Normal 0.9-7.0 [facility] Comment on above: Performed By: #### C BC #### [facility] [address] [place] [address] Dr. Murtaza Gillespie Erythrocyte distribution width (RBC) [Ratio] 12.6 % Normal 11.0-15.0 [facility] Comment on above: Performed By: #### C BC #### [facility] [address] [place] [address] Dr. Murtaza Gillespie Hematocrit (Bld) [Volume fraction] 37.9 % Normal 36.0-48.0 [facility] Comment on above: Performed By: #### C BC #### [facility] [address] [place] [address] Dr. Murtaza Gillespie Hemoglobin (Bld) [Mass/Vol] 12.4 g/dL Normal 12.0-16.0 [facility] Comment on above: Performed By: #### C BC #### [facility] [address] [place] [address] Dr. Murtaza Gillespie IG # 0.02 10e3/ul Normal 0.00-0.03 [facility] Comment on above: Performed By: #### C BC #### [facility] [address] [place] [address] Dr. Murtaza Gillespie IG % 0.3 % Normal 0.0-0.5 [facility] Comment on above: Performed By: #### C BC #### [facility] [address] [place] [address] Dr. Murtaza Gillespie LYMPH # 2.8 103/ul Normal 1.2-3.8 [facility] Comment on above: Performed By: #### C BC #### [facility] [address] [place] [address] Dr. Murtaza Gillespie Lymphocytes/100 WBC (Bld) 41.2 % Normal 20.5-60.0 [facility] Comment on above: Performed By: #### C BC #### [facility] [address] [place] [address] Dr. Murtaza Gillespie MANUAL DIFF REQ NO Normal [facility] Comment on above: Performed By: #### C BC #### [facility] [address] [place] [address] Dr. Murtaza Gillespie MCH (RBC) [Entitic mass] 30.5 pg Normal 26.7-34.0 [facility] Comment on above: Performed By: #### C BC #### [facility] [address] [place] [address] Dr. Murtaza Gillespie MCHC (RBC) [Mass/Vol] 32.7 g/dL Normal 29.9-35.2 [facility] Comment on above: Performed By: #### C BC #### [facility] [address] [place] [address] Dr. Murtaza Gillespie MCV (RBC) [Entitic vol] 93.1 fL Normal 81.0-99.0 [facility] Comment on above: Performed By: #### C BC #### [facility] [address] [place] [address] Dr. Murtaza Gillespie MONO # 0.4 103/ul Normal 0.3-0.8 [facility] Comment on above: Performed By: #### C BC #### [facility] [address] [place] [address] Dr. Murtaza Gillespie Monocytes/100 WBC (Bld) 5.4 % Normal 1.7-12.0 [facility] Comment on above: Performed By: #### C BC #### [facility] [address] [place] [address] Dr. Murtaza Gillespie NEUT # 3.5 103/ul Normal 1.4-6.5 [facility] Comment on above: Performed By: #### C BC #### [facility] [address] [address] [address] Murtaza Gillespie Neutrophils/100 WBC (Bld) 51.4 % Normal 43.0-75.0 [facility] Comment on above: Performed By: #### C BC #### [facility] [address] [place] [address] Dr. Murtaza Gillespie Platelet mean volume (Bld) [Entitic vol] 9.9 fL Normal 9.5-13.5 [facility] Comment on above: Performed By: #### C BC #### [facility] [address] [place] [address] Dr. Murtaza Gillespie PLT 291 103/ul Normal 150-450 [facility] Comment on above: Performed By: #### C BC #### [facility] [address] [place] [address] Dr. Murtaza Gillespie RBC 4.07 106/ul Critically low 4.20-5.40 [facility] Comment on above: Performed By: #### C BC #### [facility] [address] [place] [address] Dr. Murtaza Gillespie WBC 6.9 103/ul Normal 4.0-11.0 [facility] Comment on above: Performed By: #### C BC #### [facility] [address] [place] [address] Dr. Murtaza Gillespie PROF 14(COMP METB)on 023 Albumin [Mass/Vol] 3.5 g/dL Normal 3.4-5.0 [facility] Comment on above: Performed By: #### C MP #### [facility] [address] [place] [address] Dr. Murtaza Gillespie Albumin/Globulin [Mass ratio] 1.0 {ratio} Normal [facility] Comment on above: Performed By: #### C MP #### [facility] [address] [place] [address] Dr. Murtaza Gillespie ALP [Catalytic activity/Vol] 67 U/L Normal 46-116 [facility] Comment on above: Performed By: #### C MP #### [facility] [address] [address] [address] Murtaza Gillespie ALT [Catalytic activity/Vol] 29 U/L Normal 14-59 [facility] Comment on above: Performed By: #### C MP #### [facility] [address] [address] [address] Murtaza Gillespie Anion gap [Moles/Vol] 12.8 mmol/L Normal [facility] Comment on above: Performed By: #### C MP #### [facility] [address] [address] [address] Murtaza Gillespie AST [Catalytic activity/Vol] 17 U/L Normal 15-37 [facility] Comment on above: Performed By: #### C MP #### [facility] [address] [place] [address] Dr. Murtaza Gillespie Bilirubin [Mass/Vol] 0.2 mg/dL Normal 0.2-1.0 [facility] Comment on above: Performed By: #### C MP #### [facility] [address] [address] [address] Murtaza Gillespie Calcium [Mass/Vol] 8.9 mg/dL Normal 8.5-10.1 [facility] Comment on above: Performed By: #### C MP #### [facility] [address] [place] [address] Dr. Murtaza Gillespie Chloride [Moles/Vol] 106 mmol/L Normal 98-107 [facility] Comment on above: Performed By: #### C MP #### [facility] [address] [address] [address] Murtaza Gillespie CO2 [Moles/Vol] 27.0 mmol/L Normal 21.0-32.0 [facility] Comment on above: Performed By: #### C MP #### [facility] [address] [address] [address] Murtaza Gillespie Creatinine [Mass/Vol] 0.51 mg/dL Critically low 0.55-1.02 [facility] Comment on above: Performed By: #### C MP #### [facility] [address] [address] [address] Murtaza Gillespie EGFR-AF ARGENTINE >60 Normal >=60 [facility] Comment on above: Performed By: #### C MP #### [facility] [address] [address] [address] Murtaza Gillespie EGFR-NON AF ARGENTINE >60 Normal >=60 [facility] Comment on above: Performed By: #### C MP #### [facility] [address] [address] [address] Murtaza Gillespie Globulin (S) [Mass/Vol] 3.4 g/dL Normal [facility] Comment on above: Performed By: #### C MP #### [facility] [address] [place] [address] Dr. Murtaza Gillespie Glucose [Mass/Vol] 89 mg/dL Normal 74-106 [facility] Comment on above: Performed By: #### C MP #### [facility] [address] [place] [address] Dr. Murtaza Gillespie Potassium [Moles/Vol] 3.8 mmol/L Normal 3.5-5.1 [facility] Comment on above: Performed By: #### C MP #### [facility] [address] [place] [address] Dr. Murtaza Gillespie Protein [Mass/Vol] 6.9 g/dL Normal 6.4-8.[address] [facility] Comment on above: Performed By: #### C MP #### [facility] [address] [place] [address] Dr. Murtaza Gillespie Sodium [Moles/Vol] 142 mmol/L Normal 136-[address] [facility] Comment on above: Performed By: #### C MP #### [facility] [address] [place] [address] Dr. Murtaza Gillespie Urea nitrogen [Mass/Vol] 8.0 mg/dL Normal 7.0-18.0 [facility] Comment on above: Performed By: #### C MP #### [facility] [address] [place] [address] Dr. Murtaza Gillespie Urea nitrogen/Creatinin e [Mass ratio] 15.7 mg/mg Normal [facility] Comment on above: Performed By: #### C #### [facility] [address] [address] [address] Murtaza Gillespie XR Ankle Complete Righton XR Ankle Complete Right FINDINGS: Mild anterolateral soft tissue swelling however, no fracture or dislocation is seen. Talar dome and talar cain are intact. Bone mineralization is normal for this age. IMPRESSION: Mild anterolateral soft tissue swelling. Report reported and signed by Neftaly Whitney on 05/15/2022 1120 Normal [facility] [address] [employer] XR Hand Complete Left*on XR Hand Complete [...] by Neftaly Whitney on 05/15/2022 1117 Normal [facility] [address] [employer] XR Wrist Complete Left*on XR Wrist Complete [...] by Neftaly Whitney on 05/15/2022 1116 Normal [facility] [employer] EEGon 10-09-2020 EEG NAME Pepe Hansen [id number] MEDICAL RECORD NUMBER HOSP[facility] # [id number] AGE 25 (: 1995) ROOM # CD:1 [...] seizure. Pieter Barnes D.O. gls Dictated: 10/04/2020 #[id number] Typed: 10/05/2020 #[id number] cc:: Sandi Greenfield D.O. [facility] Comment on above: Result Comment: Elec tronically Signed By: Pieter Barnes DO\.br\Date and Time Signed: 10/09/20 09:37 EST Coding Summary.on 10-05-2020 Coding Summary. CODING DATE: 021 FINAL [facility] STATUS: Home (Routine DC) PAYOR: Medicaid EA [...] Huffman CphT Date Saved: 10/05/2020 10:29 am [facility] 10-04-2020 Consent [id number] :127 Normal [facility] Physician Orderon 09-27-2020 Physician Order [id number]: 127 Normal [facility] Vital Signs Date Time Vital Sign Value Performing Clinician Brittany finney 10-23-2023 09:15-050 Body height 172.7 cm [facility] Horticulture/Floriculture Teacher [facility] 10-23-2023 09:15-0500 Body mass index (BMI) [Ratio] 31.78 kg/m2 [facility] Horticulture/Floriculture Teacher [facility] 10-23-2023 09:15-050 Body weight 94.8 kg [facility] Horticulture/Floriculture Teacher [facility] 10-23-2023 09:15-0500 Diastolic blood pressure 76 mm[Hg] [facility] Horticulture/Floriculture Teacher [facility] 10-23-2023 09:15-0500 Systolic blood pressure 122 mm[Hg] [facility] Encounters Encounter Date Encounter Type Care Provider Facility Start: 03-10-2024 End: 03-10-2024 ambulatory ASHLEY HERNANDEZGEL Not Available Start: 11-25-2023 End: 11-25-2023 ambulatory RUTHANN A HACKENBURG Not Available Start: 10-28-2023 End: 10-28-2023 ambulatory RUTHANN A HACKENBURG Not Available Start: 10-23-2023 End: 10-23-2023 ambulatory SAVITAORIN LUNA [facility] Start: 10-23-2023 End: 10-23-2023 Patient encounter procedure [facility] Work Phone: Start: 10-23-2023 End: 10-23-2023 Periodic preventive med est patient 18-39 yrs [facility] Horticulture/Floriculture Teacher [facility] [place] Comment on above: Well woman exam with routine gynecological exam (Primary Dx); Standardized adult depression screening tool completed Start: 07-21-2023 End: 07-21-2023 ambulatory SARAH LO Not Available Start: 11-21-2022 End: 11-21-2022 ambulatory SAVITA MARROQUIN Facility:[facility] Start: 10-02-2022 End: 10-03-2022 ambulatory LATANYA CHANG Facility:[facility] Procedures Date Procedure Procedure Detail Performing Clinician Start: 10-23-2023 Adult depression scr eening assessment [facility] Horticulture/Floriculture Teacher Start: 10-09-2022 Microscopic observat ion [Identifier] in Cervix by Cyto stain [facility] Horticulture/Floriculture Teacher Plan of Treatment Date Care Activity Detail Author Start: 04-05-2031 DTaP,Tdap and Td Vaccines (7 - Td or Tdap) DTaP,Tdap and Td Vaccines (7 - Td or Tdap) [facility] Start: 10-09-2025 Screening for malign ant neoplasm of cervix Pap Smear [facility] Start: 06-04-2024 Adult BMI Screening Adult BMI Screen ing [facility] Start: 06-04-2024 Tobacco Screening Tobacco Screening [facility] Start: 10-09-2023 Adult BMI Follow Up Plan Adult BMI Follow Up Plan [facility] Start: 05-02-2023 COVID-19 Vaccine ( season) COVID-19 Vaccine ( season) [facility] Start: 05-02-2023 Influenza vaccination Influenza Vacc ine [facility] Start: 07-12-2022 Depression Screening Depression Scre ening [facility] Start: 1995 Tobacco Counseling Tobacco Counselin g [facility] Immunizations Immunization Date Immunization Notes Care Provider Roma fuentes 06-02-2021 COVID-19 Vaccine, vector-nr, [id number], PF, 0.5mL [facility] 04-05-2021 tetanus toxoid, redu allyn diphtheria toxoid, and acellular pertussis vaccine, adsorbed [facility] NEGATED: Highlighted row has not occurred!09-03-2018 measles, mumps and rubella virus vaccine [facility] Comment on above: Deferred: Other - ru cris immune NEGATED: Highlighted row has not occurred!09-03-2018 tetanus toxoid, reduced diphtheria toxoid, and acellular pertussis vaccine, adsorbed [facility] Payers Date Payer Category Payer Medicaid [employer] [facility] [place] [id number] 2022-Present [address] [place] [address] [id number] 2022 Medicaid [id number] 1995 Unknown [id number] 1997 Unknown [id number] 1997 Unknown [id number] 1997 Unknown [id number] 1997 Unknown [id number] 1997 Unknown [id number] 1997 Unknown [id number] 1997 Unknown [id number] Social History Date Type Detail Facility Start: 10-23-2023 Tobacco smoking stat [facility] Smokes tobacco daily [facility] [facility] History of tobacco use Cigar Smoker [facility] Start: 10-23-2023 Tobacco use and exposure Smokeless tobacco non-user [facility] Start: 10-23-2023 Alcohol intake Ex-drinker (finding) [facility] Start: 10-03-2020 End: 10-23-2023 History of Social function [facility] Start: 10-03-2020 End: 10-23-2023 Tobacco use panel [facility] How hard is it for y ou to pay for the very basics like food, housing, medical care, and heating Not hard at all [facility] The thought of kelsey greco myself has occurred to me Never [facility] Start: 05-10-2020 Alcohol Comment socially [facility] Start: 1995 Sex Assigned At Not on file P [facility] History of Present illness Narrative 10-23-2023 Megha Ruiz, ENTERPRISE RESOURCE PLANNING CONSULTANT-STORE LOSS PREVENTION MANAGER - 10/23/2023 9:00 AM EST Note Date & Type Note Facility 10-23-2023 History of Present illness Narrative Annual Well Woman Visit 10/23/2023 Nicky Hansen is a 28 y.o. 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 Periods are irregular with Nexplanon, lasting [...] HX Past Medical History: Diagnosis Date Epilepsy ([facility]) History of gestational hypertension 05/10/2020 On daily baby ASA Baseline PCR 0.09 HPV (human papilloma virus) infection Seizures ([facility]) SURGICAL HX Past Surgical History: Procedure Laterality Date N/A 08/31/2018 Performed by En Montana MD at [facility] OR REPEAT N/A 05/31/2021 Performed by En Montana MD at [facility] OR TONSILLECTOMY WISDOM TOOTH EXTRACTION FAMILY [...] Follow up in 1 year for annual gyroscopic instrument mechanic exam. Follow up as needed. Next pap due 2025 per ASCCP guidelines. Discussed taking a multivitamin. Discussed Calcium and Vitamin D for prevention of osteoporosis. Encouraged smoking cessation. Discussed need for yearly mammogram after 40 yo. Discussed colon cancer screening recommendations to begin at 45 yo, patient to discuss with PCP. All questions answered. LIGIA Tapia, ENTERPRISE RESOURCE PLANNING CONSULTANT-STORE LOSS PREVENTION MANAGER MeghaDONNY Machado 10/23/23 0929 documented in this encounter [facility] Evaluation note Note Date & Type Note Facility Evaluation note Diagnosis Well woman exam with routine gynecological exam- Primary Routine gynecological examination Standardized adult depression screening tool completed documented in this encounter [facility] Instructions Attachments Note Date & Type Note Facility Instructions The following attachments cannot be sent through Care Everywhere.How to Perform Breast Self-Examination (Syriac)Quitting smoking ([place]riac)documented in this encounter [facility] Summary Purpose Family History [...] section and content) DATE CREATED AUTHOR 10/09/2020 [facility] DATE CREATED AUTHOR AUTHOR'S ORGANIZ ATION 05/28/2022 [facility] dical Specialist DATE CREATED AUTHOR AUTHOR'S ORGANIZ ATION 11/25/2022 [facility] DATE CREATED AUTHOR AUTHOR'S ORGANIZ ATION 06/10/2023 [facility] DATE CREATED AUTHOR AUTHOR'S ORGANIZ ATION 10/31/2023 [facility] DATE CREATED AUTHOR AUTHOR'S ORGANIZ ATION 03/17/2024 [facility] dical Specialists EPIC Reason for Visit (unrecogniz ed section and content) Reason Comments Gynecologic Exam Pt is here for annua l exam. Care Teams (unrecognized sec tion and content) Software Applications Architect Relationship Specialty Start Date End Date Savita Han, DEONTE-STORE LOSS PREVENTION MANAGER [address] [place] [id number] PCP - General Nurse Practitioner 01/17/21 FOR [...] BE BASED ON THE PRIMARY CLINICAL RECORDS. [employer] [facility]. provides no warranty or guarantee of the accuracy or completeness of information in this document.
--- NOTE | 2025-04-17 19:44 | ECG_ITS ---
[facility] Test Date: 2025-04-17 Pat Name: LUIS MEADOWS Department: Room: - Gender: Female Dope Edger: : 1995 Requested By: [id number] Order Number: [id number] Reading MD: RUFINA PINO M.D. Measurements Intervals Dickey Rate: 80 P: 60 NE: 184 QRS: 64 QRSD: 100 T: 36 QT: 372 QTc: 408 Interpretive Statements 1100 Sinus rhythm 1102 Sinus arrhythmia 9110 normal ECG Compared to ECG 04/17/2025 13:58:34 No significant changes Electronically Signed On 04-18-2025 17:46:04 EDT by RUFINA PINO M.D.
--- NOTE | 2025-04-17 19:47 | ED_ITS ---
HPI - Seizure General Chief Complaint: Seizure Stated Complaint: SEIZURE Time Seen by Provider: 04/17/25 19:27 Source: patient Mode of arrival: Wheelchair Limitations: no limitations History of Present Illness HPI Narrative: Patient is a 30-year-old female who presents to the ER with concerns of seizure and being out of her medications. She is brought in by her spouse. Patient reports having a history of epilepsy since age 17. She admits that she was feeling better here earlier today when she was evaluated following a seizure at home. However did not mention that she was out of her medication. Patient's called this evening to see about getting a medication refill however she had already been gone from the ER for quite some time and we recommended coming back to check in as a new patient. Upon arrival the patient gives the same history that she had earlier this morning with breakthrough seizures but admits that she has been out of her medication for over a week regarding the Lamictal and the Keppra only since yesterday. She denies any new head injury but states she would like to speak with her spouse to be sure. Pt awoke this am with brusing to face and nose/ Patient is unsure if she had a seizure earlier this evening since her last ER visit. She is alert and oriented to person place and time. Unable to recall her medication dosages but states her has the prescriptions with him but does know she take keppra and lamictal. Notes that her neurologist is Dr. Bob and she had not had a seizure for 7 years before running out of her medication. Does have a bruise on her right cheek/periorbital region from possible seizure before waking up this am and prior to previous ER visit with head CT performed. complaint: Reports seizure and possible seizure Related Data Home Medications ?Medication ?Instructions ?Recorded ?Confirmed lamotrigine 100 mg tablet 200 mg PO Q12H 04/17/2504/01 levetiracetam 1,000 mg tablet 1,500 mg PO Q12H 5 04/17/25 Previous Rx's ?Medication ?Instructions ?Recorded lamotrigine 200 mg tablet 200 mg PO BID 3 weeks #42 ta bs 04/17/25 (Lamictal) lamotrigine 25 mg tablet (Lamictal) 25 mg PO BID 3 wee ks #42 tabs 04/17/25 levetiracetam 1,000 mg tablet 1,500 mg (1.5 x 1,000 mg ) PO BID 3 04/17/25 ([facility]) weeks #63 tabs Allergies Allergy/AdvReac Type Severity Reaction Status Date / Time No Known Drug Allergies Allergy Verified 04/17/25 19:38 Review of Systems ROS Constitutional Denies: fever or chills Eyes Denies: change in vision or blurry vision Ears, nose, mouth, and throat Denies: throat pain or neck pain Cardiovascular Denies: chest pain Neurological Reports: headache PFSH PFSH Social History Little interest or pleasure in doing things: not at all Feeling down, depressed, or hopeless: not at all Exam Narrative Exam Narrative: Nurses notes and vital signs reviewed and patient is not hypoxic. General: The patient appears well and in no apparent distress. Patient is resting comfortably on cart. Intermittently complaining of nausea. Skin: Warm, dry, no pallor noted. no rash. Head: Normocephalic, bruise right frontal/periorbital region and abrasion right nasal labial fold. , no scalp hematoma. Neck: Supple, trachea mid-line, no tenderness, no lymphadenopathy Eye: Pupils are equal, round and reactive to light, EOMI Ears, Nose, Mouth, and Throat: TM are clear, normal light reflex, oral mucosa is moist, no posterior oropharynx erythema or hypertrophy, uvula is mid-line, abrasion to right nasal labial fold. Cardiovascular: Regular Rate and Rhythm Respiratory: Patient is in no distress, no accessory muscle use, lungs are clear to auscultation, no wheezing, rales or rhonchi. Chest Wall: no tenderness Back: non-tender, no CVA tenderness Musculoskeletal: normal ROM, no tenderness, no swelling GI: Normal bowel sounds, no tenderness to palpation, no masses appreciated. No rebound, guarding, or rigidity noted. Neurological: A&O x4 Psychiatric: Cooperative Constitutional Vital Signs, click to edit/add: Last Vital Signs Temp 99.3 F 04/17/25 19:30 Pulse 85 04/17/25 19:30 Resp 18 04/17/25 19:30 BP 137/93 H 04/17/25 19:30 Pulse Ox 97 04/17/25 19:30 O2 Del Method Room Air 04/17/25 19:30 Course Vital Signs Vital signs: Vital Signs Temperature 99.3 F 04/17/25 19:30 Pulse Rate 85 04/17/25 19:30 Respiratory Rate 18 04/17/25 19:30 Blood Pressure 137/93 H 04/17/25 19:30 Pulse Oximetry 97 04/17/25 19:30 Oxygen Delivery Method Room Air 04/17/25 19:30 Temperature 99.3 F 04/17/25 19:30 Pulse Rate 85 04/17/25 19:30 Respiratory Rate 18 04/17/25 19:30 Blood Pressure 137/93 H 04/17/25 19:30 Pulse Oximetry 97 04/17/25 19:30 Oxygen Delivery Method Room Air 04/17/25 19:30 MDM - Seizure MDM Narrative Medical decision making narrative: Seizure pad precautions implemented with SL placed incase of further seizure for tx. Patient presented earlier today for breakthrough seizure had full workup labs and CT of the head performed. She is established with neurology but believes that she had her medications at home. Patient then called later this evening noting that she is out of her medications at home requesting evening doses for compliance and refill. Confirmed nurses triage note and reviewed with the patient's spouse. He reports no changes from earlier today other than when he was on the phone calling about getting a dose of her evening medications he saw her shake for 1 minute on the couch. She awoke after this with a minimal postictal state and he brought her to the ER to reregister for medication refill. The patient complained of mild nausea and headache treated with Tylenol and Zofran. Reviewing the previous medical record it was assumed that she had been taking her medications at home but forgot 1 dose here sometime during the night. She did not receive any additional medication. She is given her usual dose here this evening as she has been out of the medication for over a week on the Lamictal and Keppra since yesterday. Spouse was thankful at bedside. He did not bring the pill bottles with him but did recite her prescription and dosage and I was able to confirm this with the MAR on RX reviewed: Patient was nauseous with some vomiting on arrival, received Zofran. She also was prescribed Tylenol for her headache. There was slight delay in getting her medications crossed over after confirming dosing with her . She then was sleeping and declined to take him at that time. We discussed that if her nausea is improved she needs to take her seizure medication. Patient reevaluated, resting easily. She was able to take her medication and keep them down there was no further vomiting. Headache is improved. Patient and family feel ready for discharge home. We discussed her electrolytes here. Patient will get her prescription filled to take her next dose tomorrow morning. We discussed prompt follow-up to neurology to discuss her medication dosages and the importance of taking her medication was discussed at bedside. The patient has had no further seizure activity and was observed for almost 2 hours before discharge The patient is to followup with Neurology as soon as possible , primary care physician in next 2-3 days or to return to the emergency department should any of the signs or symptoms worsen or new symptoms develop. Patient had questions answered. The patient agrees with the following Diagnosis and Treatment plan and the patient will be discharged home. Lab Data Labs: Lab Results 04/17/25 Range/Units 20:07 Sodium 143 (136-145) mmol/L Potassium 3.7 (3.5-5.1) mmol/L Chloride 108 H (98-107) mmol/L Carbon Dioxide 25.6 (21.0-32.0) mmol/L Anion Gap 13.1 BUN 9.0 (7.0-18.0) mg/dL Creatinine 0.62 (0.55-1.02) mg/dL Est GFR ( Amer) >60 (>=60 mL/min/1.73m^2) Est GFR (Non-Af Amer) >60 (>=60 mL/min/1.73m^2) BUN/Creatinine Ratio 14.5 Glucose 110 H (74-106) mg/dL Calcium 9.1 (8.5-10.1) mg/dL ECG Data Attestation: I personally reviewed and interpreted this ECG as follows: Interpretation: EKG interpretation: Emergency Department physician interpretation, normal sinus rhythm 80 bpm, no ectopy, no ST segment elevation, normal axis. Discharge Plan Discharge Chief Complaint: Seizure Clinical Impression: Epileptic seizure, Breakthrough seizure Patient Disposition: Home, Self-Care Time of Disposition Decision: 21:07 Condition: Good Prescriptions / Home Meds: New levetiracetam [Keppra] 1,000 mg tablet 1,500 mg PO BID 21 Days Qty: 63 0RF lamotrigine [Lamictal] 200 mg tablet 200 mg PO BID 21 Days Qty: 42 0RF lamotrigine [Lamictal] 25 mg tablet 25 mg PO BID 21 Days Qty: 42 0RF No Action lamotrigine 100 mg tablet 200 mg PO Q12H levetiracetam 1,000 mg tablet 1,500 mg PO Q12H Print Language: Tajik Instructions: Epilepsy (ED) Referrals: JG SANCHEZ [Primary Care Provider, Family Practice] - 1 week Lorri Bob DO [Physician, Neurology] - As soon as possible
[2025-04-17 20:23] LABS: Anion Gap 13.1; Blood Urea Nitrogen 9.0 mg/dL (7.0-18.0); Calcium 9.1 mg/dL (8.5-10.1); Carbon Dioxide 25.6 mmol/L (21.0-32.0); Chloride 108 mmol/L (98-107); Estimated GFR (African America >60 (>=60 mL/min/1.73m^2); Estimated GFR (Non-African Ame >60 (>=60 mL/min/1.73m^2); Glucose 110 mg/dL (74-106); Potassium 3.7 mmol/L (3.5-5.1); Sodium 143 mmol/L (136-145)
[2025-04-17] MEDS: LAMOTRIGINE 25 MG TABLET 225 MG PO (20:46)
[2025-04-17] MEDS: ACETAMINOPHEN 500 MG TABLET 1000 MG PO (20:47)
[2025-04-17] MEDS: LEVETIRACETAM 500 MG TABLET PO (20:47)
[2025-04-17] MEDS: LEVETIRACETAM 500 MG TABLET 1000 MG PO (20:47)
== END 2025-04-17 21:30 | disposition home or self-care (01) ==
PROVIDERS: Personal Emergency Response Attendant; Emergency Provider Emergency Medicine; PCP Family Medicine
DX: G40.909 Epilepsy, unspecified, not intractable, without status epilepticus (principal); R11.2 Nausea with vomiting, unspecified; R51.9 Headache, unspecified
CPT/HCPCS: 36415; 80048; 93005; 96374; 99285; J2405